=== PATIENT | female | born 1965 | race Caucasian/White ===

== ENCOUNTER → 2017-10-09 | Outpatient (CLI) | payer OTHER ==
[~2017-10-09] MED LIST: CARB200T6 PO; CASC450C PO; DIPH25TA82 PO; POLY17PO PO
--- NOTE | 2017-10-09 10:24 | Diagnostic Imaging Report ---
INDICATION: Bilateral diagnostic mammogram with tomography evaluation. CAD is utilized. The current study was also evaluated with a Computer Aided Detection (CAD) system. COMPARISON: 09/29/16. FINDINGS: The breasts are composed of heterogenously dense parenchyma which may decrease mammographic sensitivity. Circumscribed mass measuring 1.2 cm in the periareolar upper outer aspect of the right breast is stable from 2011 exam suggestive of benign etiology. The left breast demonstrate no definite change. IMPRESSION: Stable mammographic findings with no evidence of malignancy. BI-RADS 2. ACR BI-RADS Category 2: Benign findings. Result letter will be mailed to the patient. Note: At least 10% of breast cancer is not imaged by mammography. Dictated by: Dictated on workstation # [id number]
== END ==
LOC: RAD 08:41
PROVIDERS: ATTEND Nurse Practitioner Family
DX: Z87.898 Personal history of other specified conditions (principal)
CPT/HCPCS: 77066

== ENCOUNTER 2019-04-12 20:05 | Emergency (ER) | payer BC, OTHER ==
[~2019-04-12] VITALS: Ht 165.1 cm; Wt 54.0 kg
--- NOTE | 2019-04-12 20:42 | ED Headache ---
General Chief Complaint: Head/Cervical Problems Stated Complaint: HEADACHE,L EAR PAIN,FACE AND THROAT NUMBNESS Nursing Triage Note: PT AMB TO TRIAGE WITH COMPLAINT OF MIGRAINE. STATES STARTED TODAY AROUND 3 PM. STATES THE PAIN IS IN HER HEAD, FACE, AND NECK. STATES SHE HAS BEEN HAVING RINGING IN HER EARS. IS SCHEDULED TO SEE ENT FOR EARS. Nursing Sepsis Screen: No Definite Risk Source: patient Exam Limitations: no limitations History of Present Illness Date Seen by Provider: Apr 12, 2019 Time Seen by Provider: 20:40 Initial Comments 54-year-old female with a history of traumatic brain injury and seizure disorder to ER With reports of a global headache. This began at about 3 PM today. The pain is in her head face and front of her neck. She's been having ringing in her ears and is scheduled to see ear nose and throat on Thursday. No fevers or chills. Does report some blurred vision. Also has some numbness sensation in her face. The headache was 10 out of 10 at its maximum, down to 6 out of 10 now despite no intervention. She has taken nothing at home. No history of migraines. It presented from no pain at all to maximum intensity over the course of about 5 minutes. Timing/Duration: 1 week Severity/Quality: moderate Location: global Prior Headaches/Recent Trauma: no recent headache/trauma Modifying Factors: worse with exposure to light Associated Symptoms: denies symptoms; No confusion, No nausea/vomiting, No stiff neck Allergies and Home Medications Allergies Coded Allergies: Penicillins (Unverified Allergy, 06/19/11) clindamycin (Unverified Allergy, SWELLING, 06/19/11) Home Medications Carbamazepine 200 Mg Tablet, 3 TAB PO DAILY, (Reported) Carbamazepine 200 Mg Tablet, 4 TAB PO HS, (Reported) [place] 450 Mg Capsule, 450 MG PO HS, (Reported) Diphenhydramine Hcl 25 Mg Tablet, 1 EACH PO HS, (Reported) Patient Home Medication List Home Medication List Reviewed: Yes Review of Systems Review of Systems Constitutional: see HPI Eyes: No Symptoms Reported Ears, Nose, Mouth, Throat: no symptoms reported Respiratory: no symptoms reported Cardiovascular: no symptoms reported Genitourinary: no symptoms reported Musculoskeletal: no symptoms reported Skin: no symptoms reported Psychiatric/Neurological: Headache, Numbness (of the face) Past Ftqnosw-Etosyp-Dfvmye Hx Patient Social History Alcohol Use: Denies Use Recreational Drug Use: No Smoking Status: Never a Smoker Recent Foreign Travel: No Contact w/Someone Who Travel: No Recent Infectious Disease Expo: No Recent Hopitalizations: No Immunizations Up To Date Tetanus Booster (TDap): Unknown Seasonal Allergies Seasonal Allergies: No Past Medical History Surgeries: Yes Gallbladder, Tubal Ligation Respiratory: No Cardiac: No Neurological: Yes Seizure Disorder, Traumatic Brain Injury Reproductive Disorders: No Sexually Transmitted Disease: No Genitourinary: No Gastrointestinal: No Musculoskeletal: Yes (ARTHRITIS) Endocrine: No Integumentary: No Blood Disorders: No Physical Exam Vital Signs Vital Signs - First Documented 04/12/19 20:15 Temp 98.4 Pulse 81 Resp 17 B/P (MAP) 171/71 (104) Pulse Ox 99 O2 Delivery Room Air Capillary Refill : Less Than 3 Seconds Height, Weight, BMI Height: 5'5.00" Weight: 119lbs. oz. 53.633706ll; BMI Method:Stated General Appearance: WD/WN, no apparent distress HEENT: PERRL/EOMI, normal ENT inspection Neck: non-tender, full range of motion Respiratory: no respiratory distress, no accessory muscle use Extremities: normal range of motion, non-tender Psychiatric: alert, oriented x 3 Crainal Nerves: normal hearing, normal speech Skin: normal color Progress/Results/Core Measures Results/Orders Lab Results Laboratory Tests Test 04/12/19 20:45 Range/Units White Blood Count 4.8 4.3-11.0 10^3/uL Red Blood Count 4.32 L 4.35-5.85 10^6/uL Hemoglobin 12.8 11.5-16.0 G/DL Hematocrit 38 35-52 % Mean Corpuscular Volume 87 80-99 FL Mean Corpuscular Hemoglobin 30 25-34 PG Mean Corpuscular Hemoglobin Concent 34 32-36 G/DL Red Cell Distribution Width 11.7 10.0-14.5 % Platelet Count 254 130-400 10^3/uL Mean Platelet Volume 9.1 7.4-10.4 FL Neutrophils (%) (Auto) 61 42-75 % Lymphocytes (%) (Auto) 29 12-44 % Monocytes (%) (Auto) 9 0-12 % Eosinophils (%) (Auto) 2 0-10 % Basophils (%) (Auto) 0 0-10 % Neutrophils # (Auto) 2.9 1.8-7.8 X 10^3 Lymphocytes # (Auto) 1.4 1.0-4.0 X 10^3 Monocytes # (Auto) 0.4 0.0-1.0 X 10^3 Eosinophils # (Auto) 0.1 0.0-0.3 10^3/uL Basophils # (Auto) 0.0 0.0-0.1 10^3/uL Sodium Level 138 135-145 MMOL/L Potassium Level 3.9 3.6-5.0 MMOL/L Chloride Level 103 98-107 MMOL/L Carbon Dioxide Level 26 21-32 MMOL/L Anion Gap 9 5-14 MMOL/L Blood Urea Nitrogen 7 7-18 MG/DL Creatinine 0.72 0.60-1.30 MG/DL Estimat Glomerular Filtration Rate > 60 BUN/Creatinine Ratio 10 Glucose Level 100 70-105 MG/DL Calcium Level 9.8 8.5-10.1 MG/DL Corrected Calcium 8.5-10.1 MG/DL Total Bilirubin 0.3 0.1-1.0 MG/DL Aspartate Amino Transf (AST/SGOT) 17 5-34 U/L Alanine Aminotransferase (ALT/SGPT) 15 0-55 U/L Alkaline Phosphatase 66 40-136 U/L Total Protein 7.0 6.4-8.2 GM/DL Albumin 4.6 H 3.2-4.5 GM/DL My Orders Orders - MILAD RAMOS APRN Ct Head Wo (04/12/19 20:37) Cbc With Automated Diff (04/12/19 20:37) Comprehensive Metabolic Panel (04/12/19 20:37) Ed Iv/Invasive Line Start (04/12/19 20:37) Fentanyl Injection (Sublimaze Injection (04/12/19 20:45) Ketorolac Injection (Toradol Injection) (04/12/19 20:45) Csf Cell Count (04/12/19 21:22) Csf Glucose (04/12/19 21:22) Csf Total Protein (04/12/19 21:22) Csf Culture (04/12/19 21:22) Ns Iv 1000 Ml (Sodium Chloride 0.9%) (04/12/19 21:30) Fentanyl Injection (Sublimaze Injection (04/12/19 21:30) Lidocaine Pf 1% 5 Ml Injection (Xylocain (04/12/19 22:16) Medications Given in ED Current Medications Medications Dose Ordered Sig/Gael Route Start Time Stop Time Status Last Admin Dose Admin Fentanyl Citrate 25 mcg ONCE PRN IVP 04/12/19 20:45 04/12/19 20:45 25 MCG Fentanyl Citrate 50 mcg ONCE ONCE IVP 04/12/19 21:30 04/12/19 21:31 DC 04/12/19 22:02 50 MCG Ketorolac Tromethamine 15 mg ONCE ONCE IVP 04/12/19 20:45 04/12/19 20:46 DC 04/12/19 20:45 15 MG Vital Signs/I&O 04/12/19 20:15 Temp 98.4 Pulse 81 Resp 17 B/P (MAP) 171/71 (104) Pulse Ox 99 O2 Delivery Room Air Blood Pressure Mean: 104 Diagnostic Imaging Diagonstic Imaging: CT Comments NAME: JAIRO MOLINA MED REC#: [id number] PT STATUS: REG ER : 1965 PHYSICIAN: MILAD RAMOS EXECUTIVE DIRECTOR [employer]ETING ADMIT DATE: 04/12/19/ER Draft Date of Exam:04/12/19 CT HEAD WO PROCEDURE: CT head without contrast. TECHNIQUE: Multiple contiguous axial images were obtained through the brain without the use of intravenous contrast. Auto Exposure Controls were utilized during the CT exam to meet ALARA standards for radiation dose reduction. INDICATION: Migraine headache CT head without contrast There is some encephalomalacic change in the frontal lobe on left. There are no masses or hemorrhages. There are no extra-axial fluid collections. 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 No acute abnormality seen. Dictated on workstation # [id number] Dict: 04/12/192057 Trans: 04/12/192100 [facility] [id number] Interpreted by: SARAHI KENNEDY MD Electronically signed by: Departure Communication (Admissions) 2120-discussed with the patient the negative head CT. This rules out subarachnoid hemorrhage which her symptoms are most consistent with with 95% sensitivity. She can either go on home excepting 5% risk and return for worsening over to proceed with diagnostic lumbar puncture to evaluate for xanthochromia/red cells. She still rates her pain at 5 out of 10 and wishes to proceed with lumbar puncture. She does not have a history of headaches like this. 2248-VESNA CARMONA has done diagnostic lumbar puncture. This had an opening pressure of 20, crystal clear CSF walked to the lab by me. Impression Primary Impression: Headache Qualified Codes: R51 - Headache Disposition: 01 HOME, SELF-CARE Condition: Stable Departure-Patient Inst. Decision time for Depature: 22:49 Referrals: [facility] (PCP) Primary Care Physician VANGIE MARQUEZ (Family) Primary Care Physician Patient Instructions: Headache, Adult (DC) Add. Discharge Instructions: 1. Return to ER for any concerns 2. Follow-up with your doctor next week 3. All discharge instructions reviewed with patient and/or family. Voiced understanding. MILAD RAMOS EXECUTIVE DIRECTOR [employer]ING Apr 12, 2019 20:42
[2019-04-12] MEDS ORDERED: fentaNYL INJECTION 100 MCG/2 ML AMP IVP PRN (20:45)
[2019-04-12] MEDS ORDERED: KETOROLAC 30 MG/ML VIAL IVP ONE (20:45)
[2019-04-12 20:55] LABS: BASOPHILS % (AUTO) 0 % (0-10); EOSINOPHILS # (AUTO) 0.1 10^3/uL (0.0-0.3); EOSINOPHILS % (AUTO) 2 % (0-10); HEMATOCRIT 38 % (35-52); HEMOGLOBIN 12.8 G/DL (11.5-16.0); LYMPHOCYTES # (AUTO) 1.4 X 10^3 (1.0-4.0); LYMPHOCYTES % (AUTO) 29 % (12-44); MEAN CORPUSCULAR HEMOGLOBIN 30 PG (25-34); MEAN CORPUSCULAR HGB CONC 34 G/DL (32-36); MEAN CORPUSCULAR VOLUME 87 FL (80-99); MEAN PLATELET VOLUME 9.1 FL (7.4-10.4); MONOCYTES # (AUTO) 0.4 X 10^3 (0.0-1.0); MONOCYTES % (AUTO) 9 % (0-12); NEUTROPHILS # (AUTO) 2.9 X 10^3 (1.8-7.8); NEUTROPHILS % (AUTO) 61 % (42-75); PLATELET COUNT 254 10^3/uL (130-400); RED CELL DISTRIBUTION WIDTH 11.7 % (10.0-14.5); WHITE BLOOD COUNT 4.8 10^3/uL (4.3-11.0)
--- NOTE | 2019-04-12 21:01 | Diagnostic Imaging Report ---
PROCEDURE: CT head without contrast. TECHNIQUE: Multiple contiguous axial images were obtained through the brain without the use of intravenous contrast. Auto Exposure Controls were utilized during the CT exam to meet ALARA standards for radiation dose reduction. INDICATION: Migraine headache CT head without contrast There is some encephalomalacic change in the frontal lobe on left. There are no masses or hemorrhages. There are no extra-axial fluid collections. 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 No acute abnormality seen. Dictated by: Dictated on workstation # [id number]
[2019-04-12 21:13] LABS: ALANINE AMINOTRANSFERASE 15 U/L (0-55); ALBUMIN 4.6 GM/DL (3.2-4.5); ALKALINE PHOSPHATASE 66 U/L (40-136); BILIRUBIN,TOTAL 0.3 MG/DL (0.1-1.0); BUN/CREATININE RATIO 10; CALCIUM 9.8 MG/DL (8.5-10.1); CARBON DIOXIDE 26 MMOL/L (21-32); CHLORIDE 103 MMOL/L (98-107); CREATININE SERUM 0.72 MG/DL (0.60-1.30); GFR ESTIMATED > 60; GLUCOSE 100 MG/DL (70-105); POTASSIUM 3.9 MMOL/L (3.6-5.0); SODIUM 138 MMOL/L (135-145)
[2019-04-12] MEDS ORDERED: fentaNYL INJECTION 100 MCG/2 ML AMP IVP ONE (21:30)
[2019-04-12] MEDS ORDERED: NS IV 1000 ML 1,000 ML IV SCH (21:30)
[2019-04-12] MEDS ORDERED: LIDOCAINE PF 1% 5 ML (XYLOCAINE) AMP ONE (22:16)
[2019-04-12 22:26] VITALS: BP 145/65
--- NOTE | 2019-04-12 22:30 | NUR ---
MATHEW BARBOUR, TYPEWRITER OPERATOR AUTOMATIC HERE AT THIS TIME. CONSENT OBTAINED FOR LUMBAR PUNCTURE.
--- NOTE | 2019-04-12 22:41 | NUR ---
LUMBAR PUNCTURE TUBES COLLECTED: #1 @ 2233; #2 @ 2236; #3 @ 1563; #4 1552
[2019-04-12 23:05] LABS: CSF GLUCOSE 54 MG/DL (50-80); CSF TOTAL PROTEIN 29 MG/DL (15-40)
[2019-04-12 23:10] LABS: APPEARANCE,CSF CLEAR; COLOR,CSF COLORLESS; CSF TUBE NUMBER 4; RED BLOOD CELL,CSF 0 CELLS (0-0); WHITE BLOOD CELL,CSF 0 CELLS (0-5)
--- NOTE | 2019-04-14 07:11 | Anesthesia-Procedure Note ---
Procedures/Interventions Procedure Start/Stop/Diagnosis Date of Procedure: Apr 12, 2019 Start Time: 22:30 Referring Physician: SHANE Saavedra Preprocedural Diagnosis: headache Stop Time: 22:44 Lumbar Puncture Discussed Risk,Benefits: Yes Patient Consents: Yes Position: Lying, Right Sterile Technique: Yes Opening Pressure: 20 cm H20 Fluid Color: clear Spinal Needle Used: 22g Melgar 3 1/2 inch Procedure Notes late entry for 04/12/19 [id number]: Called to ED by SHANE Saavedra for LP. Patient 5'6 and 119#. Brief history obtained. Consent signed. Patient on her right side. Sterile prepped and draped. Localized at L4-L5 with lidocaine 2cc. 22 g Melgar 3.5 inch used to find SA space. CSF clear opening pressure 20 cm H20. 4 vials obtained fairly quickly. Needle removed and bandaid applied. Report to Jose C Gómez RN. Discussed post procedure instructions with patient, basically no restrictions, and discussed chance of PDPH. Patient and SO in room and confirms understanding. MATHEW BARBOUR CRNA Apr 14, 2019 07:11
== END 2019-04-12 23:27 | disposition home or self-care (01) ==
LOC: EDUNIT# 20:05 → ER 20:07
DX: R51 Headache (principal); Z86.69 Personal history of other diseases of the nervous system and sense organs; Z87.820 Personal history of traumatic brain injury; Z88.1 Allergy status to other antibiotic agents; Z88.0 Allergy status to penicillin; Z98.51 Tubal ligation status
CPT/HCPCS: 36415; 70450; 80053; 82945; 84157; 85025; 87070; 87205; 89051; 96361; 96374; 96375; 96376

== ENCOUNTER 2019-04-16 15:34 | Emergency (ER) | payer BC ==
[~2019-04-16] VITALS: Ht 165.1 cm; Wt 51.7 kg
[2019-04-16] MEDS ORDERED: ONDANSETRON 4 MG/2 ML (SDV) Z0FRAN IVP ONE (15:45)
[2019-04-16] MEDS ORDERED: LACTATED RINGERS 1,000 ML IV SCH (15:45)
[2019-04-16] MEDS ORDERED: fentaNYL INJECTION 100 MCG/2 ML AMP IVP ONE (15:45)
--- NOTE | 2019-04-16 15:50 | ED General ---
General Chief Complaint: Abdominal/GI Problems Stated Complaint: NAUSEA, VOMITING, HEADACHES, WEAK Nursing Triage Note: COMPLAINS OF N/V ET NOT ABLE TO KEEP ANYTHING DOWN SINCE THURSDAY. COMPLAINS WEAKNESS, HEADACHE, AND BILAT EYE PAIN. STATES SHE WAS SEEN HERE ON THURSDAY. ALSO HAS HAD X1 SEIZUERE SINCE THURSDAY. Nursing Sepsis Screen: No Definite Risk Source of Information: Patient Exam Limitations: No Limitations History of Present Illness Date Seen by Provider: Apr 16, 2019 Time Seen by Provider: 15:47 Initial Comments To ER with reports of a headache. This initially began on Thursday04/12/19. She was seen here in the emergency room. She described as a sudden onset headache with no history of headaches. CT was unremarkable within proceeded with diagnostic lumbar puncture to evaluate for subarachnoid hemorrhage which was negative. She was feeling better. Since then she's had nausea, headache recurs anytime she sits up or stands up. She is unable to eat because of the nausea. No fever. No diarrhea. Timing/Duration: 3-4 Days Severity: Moderate Associated Systoms: Headaches, Nausea/Vomiting Allergies and Home Medications Allergies Coded Allergies: Penicillins (Unverified Allergy, 06/19/11) clindamycin (Unverified Allergy, SWELLING, 06/19/11) Home Medications Carbamazepine 200 Mg Tablet, 3 TAB PO DAILY, (Reported) Carbamazepine 200 Mg Tablet, 4 TAB PO HS, (Reported) C[place] 450 Mg Capsule, 450 MG PO HS, (Reported) Diphenhydramine Hcl 25 Mg Tablet, 1 EACH PO HS, (Reported) Patient Home Medication List Home Medication List Reviewed: Yes Review of Systems Review of Systems Constitutional: see HPI; No chills, No fever EENTM: see HPI, other (photophobia) Cardiovascular: no symptoms reported Genitourinary: no symptoms reported Musculoskeletal: no symptoms reported Skin: no symptoms reported Psychiatric/Neurological: See HPI, Headache Hematologic/Lymphatic: No Symptoms Reported Past Ghyvzwo-Ensezz-Wwhzkk Hx Patient Social History Alcohol Use: Past History Recreational Drug Use: No Smoking Status: Former Smoker Recent Foreign Travel: No Contact w/Someone Who Travel: No Recent Infectious Disease Expo: No Recent Hopitalizations: No Immunizations Up To Date Tetanus Booster (TDap): Unknown Seasonal Allergies Seasonal Allergies: No Past Medical History Surgeries: Yes Gallbladder, Tubal Ligation Respiratory: No Cardiac: No Neurological: Yes Seizure Disorder, Traumatic Brain Injury Reproductive Disorders: No Sexually Transmitted Disease: No Genitourinary: No Gastrointestinal: No Musculoskeletal: Yes (ARTHRITIS) Endocrine: No Integumentary: No Blood Disorders: No Physical Exam Vital Signs Vital Signs - First Documented 04/16/19 15:38 Temp 98.2 Pulse 95 Resp 16 B/P (MAP) 160/77 (104) Pulse Ox 96 O2 Delivery Room Air Capillary Refill : Less Than 3 Seconds Height, Weight, BMI Height: 5'5.00" Weight: 114lbs. oz. 51.463437uj; BMI Method:Stated General Appearance: No Apparent Distress, WD/WN Eyes: Bilateral Eye Normal Inspection, Bilateral Eye PERRL, Bilateral Eye EOMI HEENT: PERRL/EOMI, TMs Normal Neck: Full Range of Motion, Normal Inspection Respiratory: No Accessory Muscle Use, No Respiratory Distress Gastrointestinal: Normal Bowel Sounds, Non Tender, Soft Extremity: Normal Capillary Refill, Normal Inspection Neurologic/Psychiatric: Alert, Oriented x3 Skin: Normal Color, Warm/Dry Progress/Results/Core Measures Suspected Sepsis Recent Fever Within 48 Hours: No Infection Criteria Present: None New/Unexplained Altered Menta: No Sepsis Screen: No Definite Risk SIRS Temperature:98.2 Pulse: 95 Respiratory Rate: 16 Laboratory Tests 04/16/19 15:48: White Blood Count 5.5 Blood Pressure 160 /77 Mean: 104 Laboratory Tests 04/16/19 15:48: Creatinine 0.75, Platelet Count 272, Total Bilirubin 0.4 Results/Orders Lab Results Laboratory Tests Test 04/16/19 15:48 04/16/19 15:55 Range/Units White Blood Count 5.5 4.3-11.0 10^3/uL Red Blood Count 4.61 4.35-5.85 10^6/uL Hemoglobin 13.7 11.5-16.0 G/DL Hematocrit 40 35-52 % Mean Corpuscular Volume 86 80-99 FL Mean Corpuscular Hemoglobin 30 25-34 PG Mean Corpuscular Hemoglobin Concent 35 32-36 G/DL Red Cell Distribution Width 12.0 10.0-14.5 % Platelet Count 272 130-400 10^3/uL Mean Platelet Volume 8.9 7.4-10.4 FL Neutrophils (%) (Auto) 70 42-75 % Lymphocytes (%) (Auto) 20 12-44 % Monocytes (%) (Auto) 9 0-12 % Eosinophils (%) (Auto) 0 0-10 % Basophils (%) (Auto) 0 0-10 % Neutrophils # (Auto) 3.9 1.8-7.8 X 10^3 Lymphocytes # (Auto) 1.1 1.0-4.0 X 10^3 Monocytes # (Auto) 0.5 0.0-1.0 X 10^3 Eosinophils # (Auto) 0.0 0.0-0.3 10^3/uL Basophils # (Auto) 0.0 0.0-0.1 10^3/uL Sodium Level 140 135-145 MMOL/L Potassium Level 3.8 3.6-5.0 MMOL/L Chloride Level 104 98-107 MMOL/L Carbon Dioxide Level 19 L 21-32 MMOL/L Anion Gap 17 H 5-14 MMOL/L Blood Urea Nitrogen 14 7-18 MG/DL Creatinine 0.75 0.60-1.30 MG/DL Estimat Glomerular Filtration Rate > 60 BUN/Creatinine Ratio 19 Glucose Level 87 70-105 MG/DL Calcium Level 10.4 H 8.5-10.1 MG/DL Corrected Calcium 8.5-10.1 MG/DL Total Bilirubin 0.4 0.1-1.0 MG/DL Aspartate Amino Transf (AST/SGOT) 15 5-34 U/L Alanine Aminotransferase (ALT/SGPT) 15 0-55 U/L Alkaline Phosphatase 64 40-136 U/L Total Protein 7.5 6.4-8.2 GM/DL Albumin 4.9 H 3.2-4.5 GM/DL Urine Color YELLOW Urine Clarity CLEAR Urine pH 5 5-9 Urine Specific [place] 1.030 H 1.016-1.022 Urine Protein 2+ H NEGATIVE Urine Glucose (UA) NEGATIVE NEGATIVE Urine Ketones 4+ H NEGATIVE Urine Nitrite NEGATIVE NEGATIVE Urine Bilirubin NEGATIVE NEGATIVE Urine Urobilinogen NORMAL NORMAL MG/DL Urine Leukocyte Esterase NEGATIVE NEGATIVE Urine RBC (Auto) NEGATIVE NEGATIVE Urine RBC NONE /HPF Urine WBC 0-2 /HPF Urine Squamous Epithelial Cells 2-5 /HPF Urine Crystals NONE /LPF Urine Bacteria TRACE /HPF Urine Casts NONE /LPF Urine Mucus NEGATIVE /LPF Urine Culture Indicated NO My Orders Orders - MILAD RAMOS SLUG PRESS OPERATOR Cbc With Automated Diff (04/16/19 15:43) Comprehensive Metabolic Panel (04/16/19 15:43) Ua Culture If Indicated (04/16/19 15:43) Ed Iv/Invasive Line Start (04/16/19 15:43) Ondansetron Injection (Zofran Injectio (04/16/19 15:45) Lactated Ringers (Lr 1000 Ml Iv Solution (04/16/19 15:45) Fentanyl Injection (Sublimaze Injection (04/16/19 15:45) Medications Given in ED Current Medications Medications Dose Ordered Sig/Gael Route Start Time Stop Time Status Last Admin Dose Admin Fentanyl Citrate 50 mcg ONCE ONCE IVP 04/16/19 15:45 04/16/19 15:46 DC 04/16/19 15:59 50 MCG Ondansetron HCl 8 mg ONCE ONCE IVP 04/16/19 15:45 04/16/19 15:46 DC 04/16/19 15:55 8 MG Vital Signs/I&O 04/16/19 15:38 Temp 98.2 Pulse 95 Resp 16 B/P (MAP) 160/77 (104) Pulse Ox 96 O2 Delivery Room Air Capillary Refill : Less Than 3 Seconds Blood Pressure Mean: 104 Departure Communication (Admissions) 1733-patient was treated with epidural blood patch by Roosevelt Swanson and myself. I oanh blood from her right arm using sterile technique 20 mL syringe and 22-gauge needle. 20 minutes after the procedure she is without headache nausea or vomiting and is drinking water without vomiting. On arrival the headache was 8 or 9 out of 10, currently 0-1 she says. Impression Primary Impression: Post-dural puncture headache Disposition: 01 HOME, SELF-CARE Condition: Improved Departure-Patient Inst. Decision time for Depature: 17:37 Referrals: [facility] (PCP) Primary Care Physician VANGIE MARQUEZ (Family) Primary Care Physician Patient Instructions: HEADACHE Add. Discharge Instructions: 1. Return to ER for any concerns 2. Follow-up with your doctor next week 3. MILAD RAMOS APRN Apr 16, 2019 15:50
[2019-04-16 15:55] LABS: BASOPHILS % (AUTO) 0 % (0-10); EOSINOPHILS % (AUTO) 0 % (0-10); HEMATOCRIT 40 % (35-52); HEMOGLOBIN 13.7 G/DL (11.5-16.0); LYMPHOCYTES # (AUTO) 1.1 X 10^3 (1.0-4.0); LYMPHOCYTES % (AUTO) 20 % (12-44); MEAN CORPUSCULAR HEMOGLOBIN 30 PG (25-34); MEAN CORPUSCULAR HGB CONC 35 G/DL (32-36); MEAN CORPUSCULAR VOLUME 86 FL (80-99); MEAN PLATELET VOLUME 8.9 FL (7.4-10.4); MONOCYTES # (AUTO) 0.5 X 10^3 (0.0-1.0); MONOCYTES % (AUTO) 9 % (0-12); NEUTROPHILS # (AUTO) 3.9 X 10^3 (1.8-7.8); NEUTROPHILS % (AUTO) 70 % (42-75); PLATELET COUNT 272 10^3/uL (130-400); WHITE BLOOD COUNT 5.5 10^3/uL (4.3-11.0)
[2019-04-16 16:03] LABS: BILIRUBIN,URINE NEGATIVE (NEGATIVE); CLARITY,URINE CLEAR; COLOR,URINE YELLOW; GLUCOSE, URINE (UA) NEGATIVE (NEGATIVE); KETONES,URINE 4+ (NEGATIVE); LEUKOCYTE ESTERASE ,URINE NEGATIVE (NEGATIVE); NITRITE,URINE NEGATIVE (NEGATIVE); PH,URINE 5 (5-9); PROTEIN,URINE 2+ (NEGATIVE); UROBILINOGEN,URINE NORMAL (NORMAL)
[2019-04-16 16:15] LABS: ALANINE AMINOTRANSFERASE 15 U/L (0-55); ALBUMIN 4.9 GM/DL (3.2-4.5); ALKALINE PHOSPHATASE 64 U/L (40-136); BILIRUBIN,TOTAL 0.4 MG/DL (0.1-1.0); BUN/CREATININE RATIO 19; CALCIUM 10.4 MG/DL (8.5-10.1); CARBON DIOXIDE 19 MMOL/L (21-32); CHLORIDE 104 MMOL/L (98-107); CREATININE SERUM 0.75 MG/DL (0.60-1.30); GFR ESTIMATED > 60; GLUCOSE 87 MG/DL (70-105); POTASSIUM 3.8 MMOL/L (3.6-5.0); SODIUM 140 MMOL/L (135-145); TOTAL PROTEIN 7.5 GM/DL (6.4-8.2)
[2019-04-16 16:18] LABS: BACTERIA,URINE TRACE /HPF; WBC,URINE 0-2 /HPF
[2019-04-16 18:00] VITALS: BP 150/73
--- OUTSIDE RECORDS SUMMARY | 2019-04-16 19:37 | XMS REPORT | Continuity of Care Document ---
Author Organization Unknown Address Unknown Allergies Active Description Code Type Severity Reaction Onset Reported/Identified Relationship to Patient Clinical Status Yes Penicillins Drug Allergy 09/04/2009 Yes Penicillins Drug Allergy N/A N/A 09/04/2009 Yes clindamycin [id number] Drug Allergy Unknown SWELLING 06/19/2011 Yes Penicillins [id number] Drug Allergy Unknown N/A 06/19/2011 Medications There is no data. Problems Date Dx Coded Attending Type Code Diagnosis Diagnosed By 06/02/2008 VANGIE MARQUEZ APRN 795.03 [place] SMEAR OF CERVIX WITH LOW GRADE SQUAMOUS INTRAEPITHELIAL LESION (LGSIL) 06/02/2008 795.03 [place] SMEAR OF CERVIX WITH LOW GRADE SQUAMOUS INTRAEPITHELIAL LESION (LGSIL) 06/02/2008 VANGIE MARQUEZ APRN 795.03 [place] SMEAR OF CERVIX WITH LOW GRADE SQUAMOUS INTRAEPITHELIAL LESION (LGSIL) 06/02/2008 YAHIR BRAUN DO 795.03 [place] SMEAR OF CERVIX WITH LOW GRADE SQUAMOUS INTRAEPITHELIAL LESION (LGSIL) 06/02/2008 YAHIR BRAUN DO 795.03 [place] SMEAR OF CERVIX WITH LOW GRADE SQUAMOUS INTRAEPITHELIAL LESION (LGSIL) 11/09/2008 VANGIE MARQUEZ APRN 296.90 MOOD DISORDER 11/09/2008 VANGIE MARQUEZ APRN 780.4 Dizziness And Vertigo 11/09/2008 296.90 MOOD DISORDER 11/09/2008 780.4 Dizziness And Vertigo 11/09/2008 VANGIE MARQUEZ APRN 296.90 MOOD DISORDER 11/09/2008 VANGIE MARQUEZ APRN 780.4 Dizziness And Vertigo 11/09/2008 YAHIR BRAUN DO 296.90 MOOD DISORDER 11/09/2008 YAHIR BRAUN DO 780.4 Dizziness And Vertigo 11/09/2008 YAHIR BRAUN DO 296.90 MOOD DISORDER 11/09/2008 YAHIR BRAUN DO 780.4 Dizziness And Vertigo 12/12/2008 VANGIE MAQRUEZ APRN R 382.00 Otitis Media Acute Without Spontaneous Rupture Eardrum 12/12/2008 MARQUEZVANGIE COFFMAN APRN R 780.6 FEVER 12/12/2008 JIMMY JACOBSONVANGIE Dillard R V58.69 MEDICATION HIGH RISK 12/12/2008 382.00 Otitis Media Acute Without Spontaneous Rupture Eardrum 12/12/2008 780.6 FEVER 12/12/2008 V58.69 MEDICATION HIGH RISK 12/12/2008 MARQUEZ VANGIE FREEDMAN R 382.00 Otitis Media Acute Without Spontaneous Rupture Eardrum 12/12/2008 MARQUEZVANGIE COFFMAN APRN R 780.6 FEVER 12/12/2008 JIMMY VANGIE FREEDMAN R V58.69 MEDICATION HIGH RISK 12/12/2008 BRAUN DO, YAHIR K 382.00 Otitis Media Acute Without Spontaneous Rupture Eardrum 12/12/2008 BRAUN DO, YAHIR K 780.6 FEVER 12/12/2008 BRAUN DO, YAHIR K V58.69 MEDICATION HIGH RISK 12/12/2008 BRAUN DO, YAHIR K 382.00 Otitis Media Acute Without Spontaneous Rupture Eardrum 12/12/2008 BRAUN DO, YAHIR K 780.6 FEVER 12/12/2008 BRAUN DO, YAHIR K V58.69 MEDICATION HIGH RISK 07/24/2009 VANGIE MARQUEZ APRN 345.10 GENERALIZED CONVULSIVE EPILEPSY WITHOUT INTRACTABLE EPILEPSY 07/24/2009 VANGIE MARQUEZ APRN 564.1 IRRITABLE BOWEL SYNDROME 07/24/2009 345.10 GENERALIZED CONVULSIVE EPILEPSY WITHOUT INTRACTABLE EPILEPSY 07/24/2009 564.1 IRRITABLE BOWEL SYNDROME 07/24/2009 VANGIE MARQUEZ APRN 345.10 GENERALIZED CONVULSIVE EPILEPSY WITHOUT INTRACTABLE EPILEPSY 07/24/2009 VANGIE MARQUEZ APRN 564.1 IRRITABLE BOWEL SYNDROME 07/24/2009 BRAUN DO YAHIR K 345.10 GENERALIZED CONVULSIVE EPILEPSY WITHOUT INTRACTABLE EPILEPSY 07/24/2009 BRAUN DO YAHIR K 564.1 IRRITABLE BOWEL SYNDROME 07/24/2009 BRAUN DO YAHIR K 345.10 GENERALIZED CONVULSIVE EPILEPSY WITHOUT INTRACTABLE EPILEPSY 07/24/2009 BRAUN DO YAHIR K 564.1 IRRITABLE BOWEL SYNDROME 08/10/2009 VANGIE MARQUEZ APRN V72.31 Pelvic Exam (internal) 08/10/2009 V72.31 Pelvic Exam (internal) 08/10/2009 VANGIE MARQUEZ APRN V72.31 Pelvic Exam (internal) 08/10/2009 YAHIR BRAUN DO V72.31 Pelvic Exam (internal) 08/10/2009 BRAUN DO, YAHIR K V72.31 Pelvic Exam (internal) 10/24/2009 VANGIE MARQUEZ APRN R 535.00 GASTRITIS ACUTE 10/24/2009 MARQUEZVANGIE COFFMAN APRN R 564.00 CONSTIPATION 10/24/2009 MARQUEZVANGIE COFFMAN APRN R 787.01 Nausea With Vomiting 10/24/2009 535.00 GASTRITIS ACUTE 10/24/2009 564.00 CONSTIPATION 10/24/2009 787.01 Nausea With Vomiting 10/24/2009 VANGIE MARQUEZ APRN R 535.00 GASTRITIS ACUTE 10/24/2009 MARQUEZVANGIE COFFMAN APRN R 564.00 CONSTIPATION 10/24/2009 MARQUEZVANGIE COFFMAN APRN R 787.01 Nausea With Vomiting 10/24/2009 [place] BRAUN DOA K 535.00 GASTRITIS ACUTE 10/24/2009 [place] BRAUN DOA K 564.00 CONSTIPATION 10/24/2009 [place] BRAUN DOA K 787.01 Nausea With Vomiting 10/24/2009 [place] BRAUN DOA K 535.00 GASTRITIS ACUTE 10/24/2009 KADE KELLY, YAHIR K 564.00 CONSTIPATION 10/24/2009 KADE KELLY, YAHIR K 787.01 Nausea With Vomiting 02/22/2010 VANGIE MARQUEZ APRN 780.39 SEIZURES OTHER 02/22/2010 780.39 SEIZURES OTHER 02/22/2010 VANGIE MARQUEZ APRN 780.39 SEIZURES OTHER 02/22/2010 [place] BRAUN DOA K 780.39 SEIZURES OTHER 02/22/2010 [place] BRAUN DOA K 780.39 SEIZURES OTHER 04/18/2010 VANGIE MARQUEZ APRN 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 04/18/2010 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 04/18/2010 VANGIE MARQUEZ APRN 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 04/18/2010 YAHIR BRAUN DO 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 04/18/2010 YAHIR BRAUN DO 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 05/06/2010 MARQUEZ INSPECTOR EYEGLASS FRAMES, VANGIE R 919.4 INSECT BITE NONVENOMOUS OF OTHER MULTIPLE AND UNSPECIFIED SITES WITHOUT INFECTION 05/06/2010 919.4 INSECT BITE NONVENOMOUS OF OTHER MULTIPLE AND UNSPECIFIED SITES WITHOUT INFECTION 05/06/2010 JIMMY JACOBSONVANGIE Dillard 919.4 INSECT BITE NONVENOMOUS OF OTHER MULTIPLE AND UNSPECIFIED SITES WITHOUT INFECTION 05/06/2010 KADE KELLY, YAHIR K 919.4 INSECT BITE NONVENOMOUS OF OTHER MULTIPLE AND UNSPECIFIED SITES WITHOUT INFECTION 05/06/2010 KADE DO, YAHIR K 919.4 INSECT BITE NONVENOMOUS OF OTHER MULTIPLE AND UNSPECIFIED SITES WITHOUT INFECTION 06/18/2010 JIMMY JACOBSONVANGIE Dillard 079.4 HUMAN PAPILLOMA VIRUS INFECTION 06/18/2010 079.4 HUMAN PAPILLOMA VIRUS INFECTION 06/18/2010 JIMMY JACOBSONVANGIE Dillard 079.4 HUMAN PAPILLOMA VIRUS INFECTION 06/18/2010 YAHIR BRAUN DO K 079.4 HUMAN PAPILLOMA VIRUS INFECTION 06/18/2010 [place] BRAUN DOA K 079.4 HUMAN PAPILLOMA VIRUS INFECTION 05/19/2011 VANGIE MARQUEZ APRN 388.70 EAR ACHE 05/19/2011 MARQUEZ VANGIE FREEDMAN 611.72 BREAST LUMP OR MASS 05/19/2011 388.70 EAR ACHE 05/19/2011 611.72 BREAST LUMP OR MASS 05/19/2011 MARQUEZVANGIE Rucker APRN 388.70 EAR ACHE 05/19/2011 VANGIE MARQUEZ APRN 611.72 BREAST LUMP OR MASS 05/19/2011 YAHIR BRAUN DO K 388.70 EAR ACHE 05/19/2011 [place] BRAUN DOA K 611.72 BREAST LUMP OR MASS 05/19/2011 KADE KELLY, YAHIR K 388.70 EAR ACHE 05/19/2011 BRAUN , YAHIR K 611.72 BREAST LUMP OR MASS 06/09/2011 VANGIE MARQUEZ APRN 610.0 SOLITARY CYST OF BREAST 06/09/2011 VANGIE MARQUEZ APRN 611.71 BREAST PAIN 06/09/2011 MARQUEZ VANGIE FREEDMAN 793.80 UNSPECIFIED (ABNORMAL) MAMMOGRAM 06/09/2011 610.0 SOLITARY CYST OF BREAST 06/09/2011 611.71 BREAST PAIN 06/09/2011 793.80 UNSPECIFIED (ABNORMAL) MAMMOGRAM 06/09/2011 MARQUEZVANGIE COFFMAN APRN 610.0 SOLITARY CYST OF BREAST 06/09/2011 VANGIE MARQUEZ APRN 611.71 BREAST PAIN 06/09/2011 MARQUEZVANGIE COFFMAN APRN 793.80 UNSPECIFIED (ABNORMAL) MAMMOGRAM 06/09/2011 BRAUN DO, YAHIR K 610.0 SOLITARY CYST OF BREAST 06/09/2011 BRAUN DO, YAHIR K 611.71 BREAST PAIN 06/09/2011 BRAUN DO, YAHIR K 793.80 UNSPECIFIED (ABNORMAL) MAMMOGRAM 06/09/2011 BRAUN DO, YAHIR K 610.0 SOLITARY CYST OF BREAST 06/09/2011 BRAUN DO, YAHIR K 611.71 BREAST PAIN 06/09/2011 BRAUN DO, YAHIR K 793.80 UNSPECIFIED (ABNORMAL) MAMMOGRAM 07/07/2011 VANGIE MARQUEZ APRN 217 BENIGN NEOPLASM OF BREAST 07/07/2011 VANGIE MARQUEZ APRN 610.1 DIFFUSE CYSTIC MASTOPATHY 07/07/2011 VANGIE MARQUEZ APRN V45.89 OTHER POSTSURGICAL STATUS 07/07/2011 217 BENIGN NEOPLASM OF BREAST 07/07/2011 610.1 DIFFUSE CYSTIC MASTOPATHY 07/07/2011 V45.89 OTHER POSTSURGICAL STATUS 07/07/2011 VANGIE MARQUEZ APRN 217 BENIGN NEOPLASM OF BREAST 07/07/2011 VANGIE MARQUEZ APRN 610.1 DIFFUSE CYSTIC MASTOPATHY 07/07/2011 VANGIE MARQUEZ APRN V45.89 OTHER POSTSURGICAL STATUS 07/07/2011 [place] BRAUN DOA K 217 BENIGN NEOPLASM OF BREAST 07/07/2011 [place] BRAUN DOA K 610.1 DIFFUSE CYSTIC MASTOPATHY 07/07/2011 KADE KELLY YAHIR K V45.89 OTHER POSTSURGICAL STATUS 07/07/2011 BRAUN DO YAHIR K 217 BENIGN NEOPLASM OF BREAST 07/07/2011 BRAUN DO YAHIR K 610.1 DIFFUSE CYSTIC MASTOPATHY 07/07/2011 BRAUN DO YAHIR K V45.89 OTHER POSTSURGICAL STATUS 10/09/2011 VANGIE MARQUEZ APRN 795.04 ABNORMAL PAP - HGSIL 10/09/2011 VANGIE MARQUEZ APRN V72.31 GIN OPERATOR EXAM, ROUTINE 10/09/2011 795.04 ABNORMAL PAP - HGSIL 10/09/2011 V72.31 GIN OPERATOR EXAM, ROUTINE 10/09/2011 VANGIE MARQUEZ APRN 795.04 ABNORMAL PAP - HGSIL 10/09/2011 VANGIE MARQUEZ APRN V72.31 GIN OPERATOR EXAM, ROUTINE 10/09/2011 YAHIR BRAUN DO 795.04 ABNORMAL PAP - HGSIL 10/09/2011 YAHIR BRAUN DO V72.31 GIN OPERATOR EXAM, ROUTINE 10/09/2011 YAHIR BRAUN DO 795.04 ABNORMAL PAP - HGSIL 10/09/2011 YAHIR BRAUN DO V72.31 GIN OPERATOR EXAM, ROUTINE 10/27/2011 VANGIE MARQUEZ APRN 478.19 OTHER DISEASES OF NASAL CAVITY AND SINUSES 10/27/2011 VANGIE MARQUEZ APRN 784.42 DYSPHONIA 10/27/2011 VANGIE MARQUEZ APRN 786.2 COUGH 10/27/2011 478.19 OTHER DISEASES OF NASAL CAVITY AND SINUSES 10/27/2011 784.42 DYSPHONIA 10/27/2011 786.2 COUGH 10/27/2011 VANGIE MARQUEZ APRN 478.19 OTHER DISEASES OF NASAL CAVITY AND SINUSES 10/27/2011 VANGIE MARQUEZ APRN 784.42 DYSPHONIA 10/27/2011 VANGIE MARQUEZ APRN 786.2 COUGH 10/27/2011 YAHIR BRAUN DO 478.19 OTHER DISEASES OF NASAL CAVITY AND SINUSES 10/27/2011 YAHIR BRAUN DO 784.42 DYSPHONIA 10/27/2011 YAHIR BRAUN DO 786.2 COUGH 10/27/2011 YAHIR BRAUN DO 478.19 OTHER DISEASES OF NASAL CAVITY AND SINUSES 10/27/2011 [place] BRAUN DOA K 784.42 DYSPHONIA 10/27/2011 YAHIR BRAUN DO K 786.2 COUGH 05/26/2012 VANGIE MARQUEZ APRN 477.9 RHINITIS 05/26/2012 477.9 RHINITIS 05/26/2012 VANGIE MARQUEZ APRN 477.9 RHINITIS 05/26/2012 YAHIR BRAUN DO 477.9 RHINITIS 05/26/2012 YAHIR BRAUN DO 477.9 RHINITIS 04/08/2013 780.79 OTHER MALAISE AND FATIGUE 04/08/2013 783.1 ABNORMAL WEIGHT GAIN 04/08/2013 VANGIE MARQUEZ APRN R 780.79 OTHER MALAISE AND FATIGUE 04/08/2013 MARQUEZVANGIE COFFMAN APRN R 783.1 ABNORMAL WEIGHT GAIN 04/08/2013 [place] BRAUN DOA K 780.79 OTHER MALAISE AND FATIGUE 04/08/2013 KADE DO, YAHIR K 783.1 ABNORMAL WEIGHT GAIN 04/08/2013 KADE KELLY YAHIR K 780.79 OTHER MALAISE AND FATIGUE 04/08/2013 KADE KELLY, YAHIR K 783.1 ABNORMAL WEIGHT GAIN 04/15/2013 789.05 ABDOMINAL PAIN PERIUMBILIC 04/15/2013 JIMMY JACOBSONVANGIE Dillard R 789.05 ABDOMINAL PAIN PERIUMBILIC 04/15/2013 [place] BRAUN DOA K 789.05 ABDOMINAL PAIN PERIUMBILIC 04/15/2013 [place] BRAUN DOA K 789.05 ABDOMINAL PAIN PERIUMBILIC 09/29/2016 Ot 610.0 SOLITARY CYST OF BREAST 09/29/2016 Ot 793.89 OTH (ABN) FINDINGS ON RADIOLOGICAL EXAMI 09/29/2016 Ot 217 BENIGN NEOPLASM BREAST 09/29/2016 Ot 611.72 LUMP OR MASS IN BREAST 09/29/2016 Ot V72.63 PRE-PROCEDURAL LABORATORY EXAMINATION 09/29/2016 Ot V74.8 SCREEN-BACTERIAL DIS NEC 09/29/2016 Ot 610.0 SOLITARY CYST OF BREAST 09/29/2016 Ot V67.09 SURGERY FOLLOW- UP, OTHER SURGERY 09/29/2016 Ot 793.80 UNSPEC ABNORMAL MAMMOGRAM 09/29/2016 Ot V67.9 FOLLOW-UP EXAM NOS 09/29/2016 Ot 611.72 LUMP OR MASS IN BREAST 09/29/2016 VANGIE MARQUEZ CFMAJOR Ot 789.00 ABDOMINAL PAIN, UNSPECIFIED SITE 09/29/2016 VANGIE MARQUEZ Ot 611.72 LUMP OR MASS IN BREAST 09/30/2016 ADALBERTO VELEZ Ot N63 UNSPECIFIED LUMP IN BREAST 10/12/2017 SIOMARA GARCIA SENIOR LABORATORY TECHNICIAN Ot Z87.898 PERSONAL HISTORY OF OTHER SPECIFIED COND 04/14/2019 MILAD RAMOS INSPECTOR EYEGLASS FRAMES Ot R51 HEADACHE 04/14/2019 MILAD RAMOS INSPECTOR EYEGLASS FRAMES Ot Z86.69 PERSONAL HISTORY OF DIS OF THE NERVOUS S 04/14/2019 MILAD RAMOS INSPECTOR EYEGLASS FRAMES Ot Z87.820 PERSONAL HISTORY OF TRAUMATIC BRAIN INJU 04/14/2019 MILAD RAMOS APRN Ot Z88.0 ALLERGY STATUS TO PENICILLIN 04/14/2019 MILAD RAMOS INSPECTOR EYEGLASS FRAMES Ot Z88.1 ALLERGY STATUS TO OTHER ANTIBIOTIC AGENT 04/14/2019 MILAD RAMOS APRN Ot Z98.51 TUBAL LIGATION STATUS Procedures Code Description [place] [address] US BREAST(S) ULTRASOUND, BOTH 10/08/2012 67260 US GUIDE FOR BIOPSY 10/08/2012 18800 MAMMOGRAM DX, KAMILLA 10/08/2012 59702 H PYLORI (IN-HOUSE) 04/08/2013 39646 ROUTINE VENIPUNCTURE 04/11/2013 34900 CBC 04/11/2013 74474 IRON SERUM 04/11/2013 38437 IRON BNDNG CAP 04/11/2013 01833 TSH 04/11/2013 79030 FERRITIN 04/11/2013 59258 CARBAMAZAPINE (TEGRETOL) TOTAL 04/11/2013 22265 CARBAMAZAPINE (TEGRETOL) TOTAL 04/15/2013 IRGROUP IRON GROUP (Iron,TIBC, Ferritin) 04/15/2013 18915 KUB 04/18/2013 47654 ROUTINE VENIPUNCTURE 02/06/2015 35561 CBC 02/06/2015 2336250 GFR CALC (RESULT ONLY) 02/06/2015 09807 CMP 02/06/2015 77053 LIPID PANEL 02/06/2015 12383 CARBAMAZAPINE (TEGRETOL) TOTAL 02/06/2015 33381 TSH 02/06/2015 Results Test Result Range Complete blood count (CBC) with automated white blood cell (WBC) differential - 04/12/19 20:45 Blood leukocytes automated count (number/volume) 4.8 10*3/uL 4.3-11.0 Blood erythrocytes automated count (number/volume) 4.32 10*6/uL 4.35-5.85 Venous blood hemoglobin measurement (mass/volume) 12.8 g/dL 11.5-16.0 Blood hematocrit (volume fraction) 38 % 35-52 Automated erythrocyte mean corpuscular volume 87 [foz_us] 80-99 Automated erythrocyte mean corpuscular hemoglobin (mass per erythrocyte) 30 pg 25-34 Automated erythrocyte mean corpuscular hemoglobin concentration measurement (mass/volume) 34 g/dL 32-36 Automated erythrocyte distribution width ratio 11.7 % 10.0- 14.5 Automated blood platelet count (count/volume) 254 10*3/uL 130-400 Automated blood platelet mean volume measurement 9.1 [foz_us] 7.4-10.4 Automated blood neutrophils/100 leukocytes 61 % 42-75 Automated blood lymphocytes/100 leukocytes 29 % 12-44 Blood monocytes/100 leukocytes 9 % 0-12 Automated blood eosinophils/100 leukocytes 2 % 0-10 Automated blood basophils/100 leukocytes 0 % 0-10 Blood neutrophils automated count (number/volume) 2.9 10*3 1.8-7.8 Blood lymphocytes automated count (number/volume) 1.4 10*3 1.0-4.0 Blood monocytes automated count (number/volume) 0.4 10*3 0.0- 1.0 Automated eosinophil count 0.1 10*3/uL 0.0-0.3 Automated blood basophil count (count/volume) 0.0 10*3/uL 0.0-0.1 Comprehensive metabolic panel - 04/12/19 20:45 Serum or plasma sodium measurement (moles/volume) 138 mmol/L 135-145 Serum or plasma potassium measurement (moles/volume) 3.9 mmol/L 3.6-5.0 Serum or plasma chloride measurement (moles/volume) 103 mmol/L 98-107 Carbon dioxide 26 mmol/L 21-32 Serum or plasma anion gap determination (moles/volume) 9 mmol/L 5-14 Serum or plasma urea nitrogen measurement (mass/volume) 7 mg/dL 7-18 Serum or plasma creatinine measurement (mass/volume) 0.72 mg/dL 0.60-1.30 Serum or plasma urea nitrogen/creatinine mass ratio 10 NRG Serum or plasma creatinine measurement with calculation of estimated glomerular filtration rate > NRG Serum or plasma glucose measurement (mass/volume) 100 mg/dL 70-105 Serum or plasma calcium measurement (mass/volume) 9.8 mg/dL 8.5-10.1 Serum or plasma total bilirubin measurement (mass/volume) 0.3 mg/dL 0.1-1.0 Serum or plasma alkaline phosphatase measurement (enzymatic activity/volume) 66 U/L 40-136 Serum or plasma aspartate aminotransferase measurement (enzymatic activity/volume) 17 U/L 5-34 Serum or plasma alanine aminotransferase measurement (enzymatic activity/volume) 15 U/L 0-55 Serum or plasma protein measurement (mass/volume) 7.0 g/dL 6.4-8.2 Serum or plasma albumin measurement (mass/volume) 4.6 g/dL 3.2-4.5 Cerebrospinal fluid cell count - 04/12/19 22:36 Cerebrospinal fluid appearance description CLEAR NRG Cerebrospinal fluid color identification COLORLESS NRG Cerebrospinal fluid leukocytes count (number/volume) 0 % 0- 5 Cerebrospinal fluid erythrocytes count (number/volume) 0 % 0-0 Manual cerebrospinal fluid lymphocytes/100 leukocytes TNP NRG Manual cerebrospinal fluid mononuclear cells/100 leukocytes TNP NRG Manual cerebrospinal fluid polymorphonuclear cells/100 leukocytes TNP NRG Cerebrospinal fluid cell count on specimen from last tube collected 4 NRG Cerebrospinal fluid glucose measurement (mass/volume) - 04/12/19 22:36 Cerebrospinal fluid glucose measurement (mass/volume) 54 mg/dL 50-80 Cerebrospinal fluid protein measurement (mass/volume) - 04/12/19 22:36 Cerebrospinal fluid protein measurement (mass/volume) 29 mg/dL 15-40 Gram stain microscopy - 04/12/19 22:36 Gram stain microscopy GRAM STAIN PERFORMED AT [facility]. NRG Bacterial cerebrospinal fluid culture - 04/12/19 22:36 Bacterial cerebrospinal fluid culture NG NRG Encounters ACCT No. Visit Date/Time Discharge Status Pt. Type Provider Facility Loc./Unit Complaint [id number] 02/06/2015 08:08:00 02/06/2015 23:59:59 [facility] Outpatient YAHIR BRAUN DO [id number] 07/04/2014 10:36:00 07/04/2014 23:59:59 [facility] Outpatient YAHIR BRAUN DO [id number] 11/30/2013 08:48:00 11/30/2013 23:59:59 [facility] Outpatient VANGIE MARQUEZ APRN [id number] 10/08/2012 10:04:00 10/08/2012 23:59:59 [facility] Outpatient VANGIE MARQUEZ APRN [id number] 04/15/2013 10:36:00 Document Registration [id number] 04/12/2019 20:07:00 04/12/2019 23:27:00 DIS Outpatient MILAD RAMOS APRN [facility] ER HEADACHE,L EAR PAIN,FACE AND THROAT NUMBNESS [id number] 10/09/2017 08:41:00 10/09/2017 23:59:59 CLS Outpatient SIOMARA GARCIA [facility] RAD Z87.898 ABNORMAL MAMMOGRAM [id number] 09/29/2016 13:19:00 09/29/2016 23:59:59 CLS Outpatient ADALBERTO VELEZ [facility] RAD SCREENING, FIBROUS BREAST TISSUE [id number] 05/23/2013 11:54:00 05/23/2013 23:59:59 [facility] Outpatient VANGIE MARQUEZ [facility] RAD FOLLOW-UP [id number] 04/15/2013 12:21:00 04/15/2013 23:59:59 CLS Outpatient VANGIE MARQUEZ [facility] RAD ABD PAIN [id number] 11/18/2012 12:13:00 Document Registration [id number] 10/28/2012 12:38:00 Document Registration [id number] 03/29/2012 13:50:00 Document Registration [id number] 06/26/2011 05:40:00 Document Registration [id number] 06/19/2011 13:42:00 Document Registration [id number] 05/27/2011 13:14:00 Document Registration
== END 2019-04-16 18:02 | disposition home or self-care (01) ==
LOC: EDUNIT# 15:34 → ER 15:35
DX: G97.1 Other reaction to spinal and lumbar puncture (principal); G40.909 Epilepsy, unspecified, not intractable, without status epilepticus; Z98.51 Tubal ligation status; Z87.891 Personal history of nicotine dependence; Z88.0 Allergy status to penicillin; Z88.1 Allergy status to other antibiotic agents; Z98.890 Other specified postprocedural states
CPT/HCPCS: 36415; 80053; 81000; 85025

== ENCOUNTER 2019-05-19 05:40 | Outpatient (CLI) | payer BC ==
[~2019-05-19] VITALS: Ht 165.1 cm; Wt 51.7 kg
[2019-05-19] MEDS ORDERED: POLY119P4 PO (15:36)
[2019-05-19] MEDS ORDERED: ATOR20TA66 PO (15:36)
[2019-05-19] MEDS ORDERED: MULT-141 PO (15:36)
[2019-05-19] MEDS ORDERED: DIPH25TA31 PO (15:36)
[2019-05-19] MEDS ORDERED: BLAC540C4 PO (15:36)
[2019-05-19] MEDS ORDERED: CARB200T6 PO ×2 (15:36)
[2019-05-19] MEDS ORDERED: CALC1CAP21 PO (15:36)
[2019-05-19] MEDS ORDERED: OMG1KC PO (15:36)
== END 2019-05-19 15:39 | disposition home or self-care (01) ==
LOC: PREOP 05:40
PROVIDERS: ATTEND Internal Medicine
DX: Z01.818 Encounter for other preprocedural examination (principal)

== ENCOUNTER 2019-05-27 06:54 | Day surgery (SDC) | payer BC ==
--- NOTE | 2019-05-12 19:33 | HISTORY AND PHYSICAL ---
DATE OF SERVICE: COLONOSCOPY HISTORY AND PHYSICAL HISTORY OF PRESENT ILLNESS: The patient is a 54-year-old white female referred by Dr. Arizmendi for screening colonoscopy. The patient, however, does report that she has been having some bilateral lower quadrant abdominal pain as well as constipation. The pain has been present for the past several months and constipation for several years. She reports a 30+ pound weight loss over the past year, has not necessarily been trying. She comes with a significant other and she reports memory difficulties since traumatic brain injury a number of years ago. She does report relief of abdominal symptoms with the passage of stool. She has not been aware of any bright red blood per rectum or melena and denies any medication change. PAST MEDICAL HISTORY: Significant for hyperlipidemia for which she has been on atorvastatin 20 mg daily with no known history of vascular disease. She has a history of traumatic brain injury and an apparent seizure disorder for which she takes Tegretol related to her brain injury 600 mg in the morning and 800 mg at bedtime. OTHER MEDICATIONS: Calcium with D 600 mg/400 units daily. She takes ClearLax daily for her constipation and occasional Cascara. She is on fish oil supplementation and occasionally takes Benadryl, is on Black Cohosh 540 mg daily and multiple vitamins daily. PAST SURGICAL HISTORY: She has had cholecystectomy laparoscopically in the past, tubal ligation and breast biopsy for what turned out to be benign pathology. REVIEW OF SYSTEMS: CONSTITUTIONAL: She has had 30+ pound weight loss, but denies night sweats, chills or fever. GASTROINTESTINAL: As per HPI. CARDIOVASCULAR: She denies any history of cardiovascular procedures. Has had no chest pain, palpitations, syncope or presyncope. PULMONARY: She denies cough, dyspnea on exertion or at rest. Denies wheezing. PHYSICAL EXAMINATION: GENERAL: Reveals normal weight white female, appears to be in no acute distress. VITAL SIGNS: Blood pressure 124/70, respiratory rate 16 and nonlabored, heart rate 72 and regular. HEENT: Unremarkable. She has a Mallampati class 3 configuration. NECK: Revealed no JVD, adenopathy or bruits. CARDIOVASCULAR: Revealed a regular rate and rhythm without murmur, S3 or S4. ABDOMEN: Soft, supple without mass or organomegaly. She has mild bilateral lower quadrant discomfort to palpation without rebound or guarding. No bruits are noted. EXTREMITIES: Reveal no cyanosis, clubbing or edema. ASSESSMENT AND PLAN: The patient was set up for screening colonoscopy on 05/27/2019 considering abdominal pain with constipation. She is likely to have more than the average amount of sensitivity, the colonic manipulation and air insufflation, so we will plan to perform with the aid of anesthesiology and Diprivan. Prep instructions with Dias-prep kit were given and questions were answered. I thank you for the referral of this pleasant lady. Job ID: [id number] DocumentID: [id number] Dictated Date: 05/04/2019 18:19:15 Ophthalmic Technician Apprentice Date: 05/04/2019 18:47:40 Dictated By: CARLA PACHECO MD
[~2019-05-27] VITALS: Ht 165.1 cm; Wt 51.7 kg
[~2019-05-27 06:54] MED LIST changes: +ATOR20TA66 PO; +BLAC540C4 PO; +CALC1CAP21 PO; +DIPH25TA31 PO; +MULT-141 PO; +OMG1KC PO; +POLY119P4 PO
[2019-05-27] MEDS ORDERED: LACTATED RINGERS 1,000 ML IV ONE (06:59)
[2019-05-27] MEDS ORDERED: D5 LR IV SOLUTION 0 ML IV ONE (06:59)
--- OUTSIDE RECORDS SUMMARY | 2019-05-27 07:03 | XMS REPORT | Continuity of Care Document ---
Author Organization Unknown Address Unknown Phone Unavailable Allergies Active Description Code Type Severity Reaction Onset Reported/Identified Relationship to Patient Clinical Status Yes Penicillins Drug Allergy 09/04/2009 Yes Penicillins Drug Allergy N/A N/A 09/04/2009 Yes clindamycin [id number] Drug Allergy Unknown SWELLING 06/19/2011 Yes Penicillins [id number] Drug Allergy Unknown N/A 06/19/2011 Medications There is no data. Problems Date Dx Coded Attending Type Code Diagnosis Diagnosed By 06/02/2008 VANGIE MARQUEZ APRN 795.03 P[place] SMEAR OF CERVIX WITH LOW GRADE SQUAMOUS INTRAEPITHELIAL LESION (LGSIL) 06/02/2008 795.03 [place] SMEAR OF CERVIX WITH LOW GRADE SQUAMOUS INTRAEPITHELIAL LESION (LGSIL) 06/02/2008 VANIGE MARQUEZ APRN 795.03 [place] SMEAR OF CERVIX [...] BRAUN DO 780.4 Dizziness And Vertigo 12/12/2008 MARQUEZ VANGIE FREEDMAN R 382.00 Otitis Media Acute Without Spontaneous Rupture Eardrum 12/12/2008 MARQUEZ VANGIE FREEDMAN R 780.6 FEVER 12/12/2008 JIMMY JACOBSONVANGIE Dillard R V58.69 MEDICATION HIGH RISK 12/12/2008 382.00 Otitis Media Acute Without Spontaneous Rupture Eardrum 12/12/2008 780.6 FEVER 12/12/2008 V58.69 MEDICATION HIGH RISK 12/12/2008 JIMMY VANGIE FREEDMAN R 382.00 Otitis Media Acute Without Spontaneous Rupture Eardrum 12/12/2008 MARQUEZ VANGIE FREEDMAN R 780.6 FEVER 12/12/2008 JIMMY JACOBSONVANGIE Dillard R V58.69 MEDICATION HIGH RISK 12/12/2008 BRAUN [...] BRAUN DO V72.31 Pelvic Exam (internal) 08/10/2009 KADE KELLY, YAHIR K V72.31 Pelvic Exam (internal) 10/24/2009 VANGIE MARQUEZ APRN 535.00 GASTRITIS ACUTE 10/24/2009 MARQUEZVANGIE COFFMAN APRN R 564.00 CONSTIPATION 10/24/2009 MARQUEZ VANGIE FREEDMAN R 787.01 Nausea With Vomiting 10/24/2009 535.00 GASTRITIS ACUTE 10/24/2009 564.00 CONSTIPATION 10/24/2009 787.01 Nausea With Vomiting 10/24/2009 MARQUEZVANGIE COFFMAN APRN R 535.00 GASTRITIS ACUTE 10/24/2009 MARQUEZ VANGIE FREEDMAN R 564.00 CONSTIPATION 10/24/2009 MARQUEZVANGIE COFFMAN APRN R 787.01 Nausea With Vomiting 10/24/2009 YAHIR BRAUN DO K 535.00 GASTRITIS ACUTE 10/24/2009 [place] BRAUN DOA K 564.00 CONSTIPATION 10/24/2009 [place] BRAUN DOA K 787.01 Nausea With Vomiting 10/24/2009 [place] BRAUN DOA K 535.00 GASTRITIS ACUTE 10/24/2009 KADE KELLY, YAHIR K 564.00 CONSTIPATION 10/24/2009 [place] BRAUN DOA K 787.01 Nausea With Vomiting 02/22/2010 VANGIE MARQUEZ APRN 780.39 SEIZURES OTHER 02/22/2010 780.39 SEIZURES OTHER 02/22/2010 VANGIE MARQUEZ APRN 780.39 SEIZURES OTHER 02/22/2010 [place] BRAUN DOA K 780.39 SEIZURES OTHER 02/22/2010 KADE KELLY, YAHIR K 780.39 SEIZURES OTHER 04/18/2010 VANGIE MARQUEZ APRN 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 04/18/2010 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 04/18/2010 VANGIE MARQUEZ APRN 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 04/18/2010 YAHIR BRAUN DO 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 04/18/2010 YAHIR BRAUN DO 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 05/06/2010 VANGIE MARQUEZ APRN 919.4 INSECT BITE NONVENOMOUS OF OTHER MULTIPLE AND UNSPECIFIED SITES WITHOUT INFECTION 05/06/2010 919.4 INSECT BITE NONVENOMOUS OF OTHER MULTIPLE AND UNSPECIFIED SITES WITHOUT INFECTION 05/06/2010 JIMMY JACOBSONVANGIE Dillard 919.4 INSECT BITE NONVENOMOUS OF OTHER MULTIPLE AND UNSPECIFIED SITES WITHOUT INFECTION 05/06/2010 YAHIR BRAUN DO K 919.4 INSECT BITE NONVENOMOUS OF OTHER MULTIPLE AND UNSPECIFIED SITES WITHOUT INFECTION 05/06/2010 YAHIR BRAUN DO K 919.4 INSECT BITE NONVENOMOUS OF OTHER MULTIPLE AND UNSPECIFIED SITES WITHOUT INFECTION 06/18/2010 JIMMY JACOBSONVANGIE Dillard 079.4 HUMAN PAPILLOMA VIRUS INFECTION 06/18/2010 079.4 HUMAN PAPILLOMA VIRUS INFECTION 06/18/2010 JIMMY JACOBSONVANGIE Dillard 079.4 HUMAN PAPILLOMA VIRUS INFECTION 06/18/2010 YAHIR BRAUN DO 079.4 HUMAN PAPILLOMA VIRUS INFECTION 06/18/2010 YAHIR BRAUN DO K 079.4 HUMAN PAPILLOMA VIRUS INFECTION 05/19/2011 MARQUEZ VANGIE FREEDMAN 388.70 EAR ACHE 05/19/2011 MARQUEZAUGUSTUS JACOBSONVANGIE Dillard 611.72 BREAST LUMP OR MASS 05/19/2011 388.70 EAR ACHE 05/19/2011 611.72 BREAST LUMP OR MASS 05/19/2011 MARQUEZAUGUSTUS JACOBSONVANGIE Dillard 388.70 EAR ACHE 05/19/2011 JIMMY JACOBSONVANGIE Dilladr 611.72 BREAST LUMP OR MASS 05/19/2011 YAHIR BRAUN DO K 388.70 EAR ACHE 05/19/2011 YAHRI BRAUN DO K 611.72 BREAST LUMP OR MASS 05/19/2011 KADE KELLY, YAHIR K 388.70 EAR ACHE 05/19/2011 KADE KELLY, YAHIR K 611.72 BREAST LUMP OR MASS 06/09/2011 MARQUEZVANGIE Rucker APRN 610.0 SOLITARY CYST OF BREAST 06/09/2011 VANGIE MARQUEZ APRN 611.71 BREAST PAIN 06/09/2011 MARQUEZ HUMANITIES INSTRUCTORVANGIE Dillard 793.80 UNSPECIFIED (ABNORMAL) MAMMOGRAM 06/09/2011 610.0 SOLITARY [...] DOA K 610.1 DIFFUSE CYSTIC MASTOPATHY 07/07/2011 BRAUN DO YAHIR K V45.89 OTHER POSTSURGICAL STATUS 07/07/2011 BRAUN DO YAHIR K 217 BENIGN NEOPLASM OF BREAST 07/07/2011 BRAUN DO YAHIR K 610.1 DIFFUSE CYSTIC MASTOPATHY 07/07/2011 BRAUN DO YAHIR K V45.89 OTHER POSTSURGICAL STATUS 10/09/2011 VANGIE MARQUEZ APRN 795.04 ABNORMAL PAP - HGSIL 10/09/2011 VANGIE MARQUEZ APRN V72.31 SPORTS MARKETING COORDINATOR EXAM, ROUTINE 10/09/2011 795.04 ABNORMAL PAP - HGSIL 10/09/2011 V72.31 SPORTS MARKETING COORDINATOR EXAM, ROUTINE 10/09/2011 VANGIE MARQUEZ APRN 795.04 ABNORMAL PAP - HGSIL 10/09/2011 VANGIE MARQUEZ APRN V72.31 SPORTS MARKETING COORDINATOR EXAM, ROUTINE 10/09/2011 YAHIR BRAUN DO 795.04 ABNORMAL PAP - HGSIL 10/09/2011 YAHIR RBAUN DO V72.31 SPORTS MARKETING COORDINATOR EXAM, ROUTINE 10/09/2011 YAHIR BRAUN DO 795.04 ABNORMAL PAP - HGSIL 10/09/2011 YAHIR BRAUN DO V72.31 SPORTS MARKETING COORDINATOR EXAM, ROUTINE 10/27/2011 VANGIE MARQUEZ APRN 478.19 [...] [place] BRAUN DOA K 784.42 DYSPHONIA 10/27/2011 [place] BRAUN DOA K 786.2 COUGH 05/26/2012 VANGIE MARQUEZ APRN 477.9 RHINITIS 05/26/2012 477.9 RHINITIS 05/26/2012 VANGIE MARQUEZ APRN 477.9 RHINITIS 05/26/2012 YAHIR BRAUN DO 477.9 RHINITIS 05/26/2012 YAHIR BRAUN DO 477.9 RHINITIS 04/08/2013 780.79 OTHER MALAISE AND FATIGUE 04/08/2013 783.1 ABNORMAL WEIGHT GAIN 04/08/2013 JIMMY HUMANITIES INSTRUCTORVANGIE Dillard 780.79 OTHER MALAISE AND FATIGUE 04/08/2013 MARQUEZVANGIE COFFMAN APRN R 783.1 ABNORMAL WEIGHT GAIN 04/08/2013 YAHIR BRAUN DO K 780.79 OTHER MALAISE AND FATIGUE 04/08/2013 KADE KELLY, YAHIR K 783.1 ABNORMAL WEIGHT GAIN 04/08/2013 KADE KELLY, YAHIR K 780.79 OTHER MALAISE AND FATIGUE 04/08/2013 [place] BRAUN DOA K 783.1 ABNORMAL WEIGHT GAIN 04/15/2013 789.05 ABDOMINAL PAIN PERIUMBILIC 04/15/2013 JIMMY JACOBSONVANGIE Dillard R 789.05 ABDOMINAL PAIN PERIUMBILIC 04/15/2013 [place] BRAUN DOA K 789.05 ABDOMINAL PAIN PERIUMBILIC 04/15/2013 YAHIR BRAUN DO K 789.05 ABDOMINAL PAIN PERIUMBILIC 09/29/2016 Ot [...] OR MASS IN BREAST 09/29/2016 VANGIE MARQUEZ CFNP Ot 789.00 ABDOMINAL PAIN, UNSPECIFIED SITE 09/29/2016 VANGIE MARQUEZ CFMAJOR Ot 611.72 LUMP OR MASS IN BREAST 09/30/2016 ADALBERTO VELEZ Ot N63 UNSPECIFIED LUMP IN BREAST 10/12/2017 SIOMARA GARCIA SUPPLY CHAIN VICE PRESIDENT Ot Z87.898 PERSONAL HISTORY OF OTHER SPECIFIED COND 04/12/2019 MILAD RAMOS HUMANITIES INSTRUCTOR Ot R51 HEADACHE 04/12/2019 MILAD RAMOS HUMANITIES INSTRUCTOR Ot Z86.69 PERSONAL HISTORY OF DIS OF THE NERVOUS S 04/12/2019 MILAD RAMOS APRN Ot Z87.820 PERSONAL HISTORY OF TRAUMATIC BRAIN INJU 04/12/2019 MILAD RAMOS APRN Ot Z88.0 ALLERGY STATUS TO PENICILLIN 04/12/2019 MILAD RAMOS HUMANITIES INSTRUCTOR Ot Z88.1 ALLERGY STATUS TO OTHER ANTIBIOTIC AGENT 04/12/2019 MILAD RAMOS APRN Ot Z98.51 TUBAL LIGATION STATUS 04/14/2019 MILAD RAMOS APRN Ot R51 HEADACHE 04/14/2019 MILAD RAMOS APRN Ot Z86.69 PERSONAL HISTORY OF DIS OF THE NERVOUS S 04/14/2019 MILAD RAMOS APRN Ot Z87.820 PERSONAL HISTORY OF TRAUMATIC BRAIN INJU 04/14/2019 MILAD RAMOS APRN Ot Z88.0 ALLERGY STATUS TO PENICILLIN 04/14/2019 MILAD RAMOS APRN Ot Z88.1 ALLERGY STATUS TO OTHER ANTIBIOTIC AGENT 04/14/2019 MILAD RAMOS APRN Ot Z98.51 TUBAL LIGATION STATUS 04/16/2019 MILAD RAMOS APRN Ot G40.909 EPILEPSY, UNSP, NOT INTRACTABLE, WITHOUT 04/16/2019 MILAD RAMOS APRN Ot G97.1 OTHER REACTION TO SPINAL AND LUMBAR PUNC 04/16/2019 MILAD RAMOS APRN Ot R51 HEADACHE 04/16/2019 MILAD RAMOS APRN Ot Z87.891 PERSONAL HISTORY OF NICOTINE DEPENDENCE 04/16/2019 MILAD RAMOS APRN Ot Z88.0 ALLERGY STATUS TO PENICILLIN 04/16/2019 MILAD RAMOS APRN Ot Z88.1 ALLERGY STATUS TO OTHER ANTIBIOTIC AGENT 04/16/2019 MILAD RAMOS APRN Ot Z98.51 TUBAL LIGATION STATUS 04/16/2019 MILAD RAMOS APRN Ot Z98.890 OTHER SPECIFIED POSTPROCEDURAL STATES 04/18/2019 MILAD RAMOS APRN Ot G40.909 EPILEPSY, UNSP, NOT INTRACTABLE, WITHOUT 04/18/2019 MILAD RAMOS HUMANITIES INSTRUCTOR Ot G97.1 OTHER REACTION TO SPINAL AND LUMBAR PUNC 04/18/2019 MILAD RAMOS APRN Ot R51 HEADACHE 04/18/2019 MILAD RAMOS APRN Ot Z87.891 PERSONAL HISTORY OF NICOTINE DEPENDENCE 04/18/2019 MILAD RAMOS APRN Ot Z88.0 ALLERGY STATUS TO PENICILLIN 04/18/2019 MILAD RAMOS APRN Ot Z88.1 ALLERGY STATUS TO OTHER ANTIBIOTIC AGENT 04/18/2019 MILAD RAMOS HUMANITIES INSTRUCTOR Ot Z98.51 TUBAL LIGATION STATUS 04/18/2019 MILAD RAMOS APRN Ot Z98.890 OTHER SPECIFIED POSTPROCEDURAL STATES 04/22/2019 MILAD RAMOS APRN Ot G40.909 EPILEPSY, UNSP, NOT INTRACTABLE, WITHOUT 04/22/2019 MILAD RAMOS HUMANITIES INSTRUCTOR Ot G97.1 OTHER REACTION TO SPINAL AND LUMBAR PUNC 04/22/2019 MILAD RAMOS APRN Ot R51 HEADACHE 04/22/2019 MILAD RAMOS APRN Ot Z87.891 PERSONAL HISTORY OF NICOTINE DEPENDENCE 04/22/2019 MILAD RAMOS APRN Ot Z88.0 ALLERGY STATUS TO PENICILLIN 04/22/2019 MILAD RAMOS APRN Ot Z88.1 ALLERGY STATUS TO OTHER ANTIBIOTIC AGENT 04/22/2019 MILAD RAMOS APRN Ot Z98.51 TUBAL LIGATION STATUS 04/22/2019 MILAD RAMOS APRN Ot Z98.890 OTHER SPECIFIED POSTPROCEDURAL STATES 05/19/2019 JUNIOR LAM, CARLA Edmond Ot Z01.818 ENCOUNTER FOR OTHER PREPROCEDURAL EXAMIN Procedures Code Description [place] [address] US BREAST(S) ULTRASOUND, BOTH 10/08/2012 34444 US GUIDE FOR BIOPSY 10/08/2012 79885 MAMMOGRAM DX, KAMILLA 10/08/2012 49106 H PYLORI (IN-HOUSE) 04/08/2013 43677 ROUTINE VENIPUNCTURE 04/11/2013 85899 CBC 04/11/2013 70975 IRON SERUM 04/11/2013 13764 IRON BNDNG CAP 04/11/2013 02953 TSH 04/11/2013 43126 FERRITIN 04/11/2013 84049 CARBAMAZAPINE (TEGRETOL) TOTAL 04/11/2013 90882 CARBAMAZAPINE (TEGRETOL) TOTAL 04/15/2013 IRGROUP IRON GROUP (Iron,TIBC, Ferritin) 04/15/2013 29378 KUB 04/18/2013 86934 ROUTINE VENIPUNCTURE 02/06/2015 38943 CBC 02/06/2015 [id number] GFR CALC (RESULT ONLY) 02/06/2015 49660 CMP 02/06/2015 81542 LIPID PANEL 02/06/2015 14499 CARBAMAZAPINE (TEGRETOL) TOTAL 02/06/2015 34900 TSH 02/06/2015 Results Test Result Range Complete [...] 0-0 Manual cerebrospinal fluid lymphocytes/100 leukocytes TNP NR Manual cerebrospinal fluid mononuclear cells/100 leukocytes TNP NR Manual cerebrospinal fluid polymorphonuclear cells/100 leukocytes TNP NR Cerebrospinal fluid cell count on specimen from last tube collected 4 NRG Cerebrospinal fluid glucose measurement (mass/volume) - 04/12/19 22:36 Cerebrospinal fluid glucose measurement (mass/volume) 54 mg/dL 50-80 Cerebrospinal fluid protein measurement (mass/volume) - 04/12/19 22:36 Cerebrospinal fluid protein measurement (mass/volume) 29 mg/dL 15-40 Gram stain microscopy - 04/12/19 22:36 Gram stain microscopy GRAM STAIN PERFORMED AT [facility]. NRG Bacterial cerebrospinal fluid culture - 04/12/19 22:36 Bacterial cerebrospinal fluid culture NR Complete blood count (CBC) with automated white blood cell (WBC) differential - 04/16/19 15:48 Blood leukocytes automated count (number/volume) 5.5 10*3/uL 4.3-11.0 Blood erythrocytes automated count (number/volume) 4.61 10*6/uL 4.35-5.85 Venous blood hemoglobin measurement (mass/volume) 13.7 g/dL 11.5-16.0 Blood hematocrit (volume fraction) 40 % 35-52 Automated erythrocyte mean corpuscular volume 86 [foz_us] 80-99 Automated erythrocyte mean corpuscular hemoglobin (mass per erythrocyte) 30 pg 25-34 Automated erythrocyte mean corpuscular hemoglobin concentration measurement (mass/volume) 35 g/dL 32-36 Automated erythrocyte distribution width ratio 12.0 % 10.0- 14.5 Automated blood platelet count (count/volume) 272 10*3/uL 130-400 Automated blood platelet mean volume measurement 8.9 [foz_us] 7.4-10.4 Automated blood neutrophils/100 leukocytes 70 % 42-75 Automated blood lymphocytes/100 leukocytes 20 % 12-44 Blood monocytes/100 leukocytes 9 % 0-12 Automated blood eosinophils/100 leukocytes 0 % 0-10 Automated blood basophils/100 leukocytes 0 % 0-10 Blood neutrophils automated count (number/volume) 3.9 10*3 1.8-7.8 Blood lymphocytes automated count (number/volume) 1.1 10*3 1.0-4.0 Blood monocytes automated count (number/volume) 0.5 10*3 0.0- 1.0 Automated eosinophil count 0.0 10*3/uL 0.0-0.3 Automated blood basophil count (count/volume) 0.0 10*3/uL 0.0-0.1 Comprehensive metabolic panel - 04/16/19 15:48 Serum or plasma sodium measurement (moles/volume) 140 mmol/L 135-145 Serum or plasma potassium measurement (moles/volume) 3.8 mmol/L 3.6-5.0 Serum or plasma chloride measurement (moles/volume) 104 mmol/L 98-107 Carbon dioxide 19 mmol/L 21-32 Serum or plasma anion gap determination (moles/volume) 17 mmol/L 5-14 Serum or plasma urea nitrogen measurement (mass/volume) 14 mg/dL 7-18 Serum or plasma creatinine measurement (mass/volume) 0.75 mg/dL 0.60-1.30 Serum or plasma urea nitrogen/creatinine mass ratio 19 NRG Serum or plasma creatinine measurement with calculation of estimated glomerular filtration rate > NRG Serum or plasma glucose measurement (mass/volume) 87 mg/dL 70-105 Serum or plasma calcium measurement (mass/volume) 10.4 mg/dL 8.5-10.1 Serum or plasma total bilirubin measurement (mass/volume) 0.4 mg/dL 0.1-1.0 Serum or plasma alkaline phosphatase measurement (enzymatic activity/volume) 64 U/L 40-136 Serum or plasma aspartate aminotransferase measurement (enzymatic activity/volume) 15 U/L 5-34 Serum or plasma alanine aminotransferase measurement (enzymatic activity/volume) 15 U/L 0-55 Serum or plasma protein measurement (mass/volume) 7.5 g/dL 6.4-8.2 Serum or plasma albumin measurement (mass/volume) 4.9 g/dL 3.2-4.5 Complete urinalysis with reflex to culture - 04/16/19 15:55 Urine color determination YELLOW NRG Urine clarity determination CLEAR NRG Urine pH measurement by test strip 5 5-9 Specific gravity of urine by test strip 1.030 1.016-1.022 Urine protein assay by test strip, semi-quantitative 2+ NEGATIVE Urine glucose detection by automated test strip NEGATIVE NEGATIVE Erythrocytes detection in urine sediment by light microscopy NEGATIVE NEGATIVE Urine ketones detection by automated test strip 4+ NEGATIVE Urine nitrite detection by test strip NEGATIVE NEGATIVE Urine total bilirubin detection by test strip NEGATIVE NEGATIVE Urine urobilinogen measurement by automated test strip (mass/volume) NORMAL NORMAL Urine leukocyte esterase detection by dipstick NEGATIVE NEGATIVE Automated urine sediment erythrocyte count by microscopy (number/high power field) NONE NRG Automated urine sediment leukocyte count by microscopy (number/high power field) [HPF] NRG Bacteria detection in urine sediment by light microscopy TRACE NRG Squamous epithelial cells detection in urine sediment by light microscopy 2-5 NRG Crystals detection in urine sediment by light microscopy NONE NRG Casts detection in urine sediment by light microscopy NONE NRG Mucus detection in urine sediment by light microscopy NEGATIVE NRG Complete urinalysis with reflex to culture NO NRG Encounters ACCT No. Visit Date/Time Discharge Status Pt. Type Provider Facility Loc./Unit Complaint [id number] 02/06/2015 08:08:00 02/06/2015 23:59:59 CLS Outpatient YAHIR BRAUN DO [id number] 07/04/2014 10:36:00 07/04/2014 23:59:59 CLS Outpatient YAHIR BRAUN DO [id number] 11/30/2013 08:48:00 11/30/2013 23:59:59 CLS Outpatient VANGIE MARQUEZ APRN [id number] 10/08/2012 10:04:00 10/08/2012 23:59:59 CLS Outpatient VANGIE MARQUEZ APRN [id number] 04/15/2013 10:36:00 Document Registration [id number] 05/19/2019 05:40:00 05/19/2019 15:39:00 DIS Outpatient CARLA PACHECO MD [facility] PREOP COLONOSCOPY [id number] 04/16/2019 15:35:00 04/16/2019 18:02:00 DIS Emergency MILAD RAMOS APRN [facility] ER NAUSEA, VOMITING, HEADACHES, WEAK [id number] 04/12/2019 20:07:00 04/12/2019 23:27:00 DIS Emergency MILAD RAMOS APRN [facility] ER HEADACHE,L EAR PAIN,FACE AND THROAT NUMBNESS [id number] 10/09/2017 08:41:00 10/09/2017 23:59:59 CLS Outpatient SIOMARA GARCIA [facility] RAD Z87.898 ABNORMAL MAMMOGRAM [id number] 09/29/2016 13:19:00 09/29/2016 23:59:59 CLS Outpatient ADALBERTO VELEZ [facility] RAD SCREENING, FIBROUS BREAST TISSUE [id number] 05/23/2013 11:54:00 05/23/2013 23:59:59 CLS Outpatient VANGIE MARQUEZ CFMAJOR [facility] RAD FOLLOW-UP [id number] 04/15/2013 12:21:00 04/15/2013 23:59:59 CLS Outpatient VANGIE MARQUEZ [facility] RAD ABD PAIN [id number] 05/27/2019 08:00:00 PEN Preadmit CARLA PACHECO MD [facility] ENDO SCREENING [id number] 11/18/2012 12:13:00 Document Registration [id number] 10/28/2012 12:38:00 Document Registration [id number] 03/29/2012 13:50:00 Document Registration [id number] 06/26/2011 05:40:00 Document Registration [id number] 06/19/2011 13:42:00 Document Registration [id number] 05/27/2011 13:14:00 Document Registration
[2019-05-27] MEDS ORDERED: LACTATED RINGERS 1,000 ML IV STA (07:16)
[2019-05-27 07:28] VITALS: BP 140/70
[2019-05-27] MEDS ORDERED: PROPOFOL INJECTION 50 ML IV ONE ×2 (07:28→09:02)
[2019-05-27] MEDS ORDERED: LIDOCAINE JELLY 2% 6 ML SYRINGE MM PRN (07:30)
[2019-05-27] MEDS ORDERED: MIDAZOLAM 2 MG/2 ML (VERSED) VIAL ONE (07:30)
[2019-05-27] MEDS ORDERED: FAMOTIDINE 20MG/2ML IV (PEPCID) ONE (07:34)
--- NOTE | 2019-05-27 08:00 | Pre-Op Note & Conscious Sedat ---
Pre-Operative Progress Note H&P Reviewed The H&P was reviewed, patient examined and no changes noted. Date H&P Reviewed: May 27, 2019 Time H&P Reviewed: 07:50 Conscious Sedation Pre-Proced ASA Score 2 For ASA 3 and 4: Consider anesthesia and medical clearance. Also, for patients with a history of failed moderate sedation consider anesthesia. Airway Lungs Heart ASA score ASA 1: a normal healthy patient ASA 2: a patient with a mild systemic disease (mid diabetes, controlled hypertension, obesity ASA 3: a patient with a severe systemic disease that limits activity (angina, COPD, prior Myocardial infarction) ASA 4: a patient with an incapacitating disease that is a constant threat to life (CHF, renal failure) ASA 5: a moribund patient not expected to survive 24 hrs. (ruptured aneurysm) ASA 6: a declared brain- patient whose organs are being harvested. For emergent operations, add the letter E after the classification Mallampati Classification Grade 2 Sedation Plan Analgesia, Amnesia, Plan communicated to team members, Discussed options with patient/fam, Discussed risks with patient/fam The patient is an appropriate candidate to undergo the planned procedure, sedation, and anesthesia. The patient immediately re-assessed prior to indication. CARLA PACHECO MD May 27, 2019 08:00
[2019-05-27] MEDS ORDERED: LIDOCAINE JELLY 2% 6 ML SYRINGE ONE (08:47)
[2019-05-27 09:35] VITALS: BP 114/59
[2019-05-27 09:40] VITALS: BP 136/64
[2019-05-27 09:45] VITALS: BP 136/64
[2019-05-27 10:15] VITALS: BP 143/74
--- NOTE | 2019-05-27 11:02 | Anesthesia-General Post-Op ---
MAC Patient Condition Mental Status/LOC: Same as Preop Cardiovascular: Satisfactory Nausea/Vomiting: Absent Respiratory: Satisfactory Pain: Controlled Complications: Absent Post Op Complications Complications None Follow Up Care/Instructions Patient Instructions None needed. Anesthesiology Discharge Order Discharge Order Patient is doing well, no complaints, stable vital signs, no apparent adverse anesthesia problems. No complications reported per nursing. MATHEW BARBOUR CRNA May 27, 2019 11:02
[2019-05-27 11:20] VITALS: BP 143/74
--- NOTE | 2019-05-27 17:42 | OPERATIVE REPORT ---
DATE OF SERVICE: COLONOSCOPY SUMMARY INDICATION FOR THE PROCEDURE: Screening. The patient was placed in the left lateral decubitus position. Prior to undergoing digital rectal evaluation, digital rectal evaluation was performed. Anal sphincter tone was normal and the perianal reflexes intact. No abnormalities, no additional inspection of anal canal or distal rectal vault. The colonoscope was inserted into the rectum and under direct visualization advanced to cecum. The cecum was identified by identification of ileocecal valve and cecal strap. Photographic documentation was obtained. Careful inspection was made as the colonoscope was withdrawn. Quality of prep was fair. FINDINGS: There was no evidence for internal or external hemorrhoids. There was severe melanosis coli noted throughout the colon. The rectum was otherwise unremarkable as was the sigmoid colon and descending colon. Two sessile polyps were noted, one in the distal transverse and the other in the proximal transverse colon. Both were biopsied and ablated. The distal transverse colonic polyp did ooze and continued to do so during visualization. For this reason, an endoclip was applied with cessation of bleeding, which probably amounted no more than 5 mL. Proximal sessile polyp had minimal blood loss. The hepatic flexure, ascending colon and cecum except for melanosis was unremarkable. ASSESSMENT: Two diminutive polyps were removed via hot forceps today, one from the distal, the other from the proximal transverse colon. We will await histopathology report before making recommendation that will likely be in the 1 to 3 year time frame. An endoclip was applied to the distal transverse colonic polyp site as there was more than the average amount of bleeding noted. Discussed with the patient and her sister who was present the need to avoid nonsteroidal medications, aspirin and hold her fish oil for the next week as well. I thank you for the referral of this pleasant lady. Job ID: [id number] DocumentID: [id number] Dictated Date: 05/27/2019 10:39:09 Cell Phone Repair Technician Date: 05/27/2019 17:40:46 Dictated By: CARLA PACHECO MD [facility]
== END 2019-05-27 11:20 | disposition home or self-care (01) ==
LOC: ENDO 06:54
PROVIDERS: ATTEND Internal Medicine
DX: Z12.11 Encounter for screening for malignant neoplasm of colon (principal); D12.3 Benign neoplasm of transverse colon; K63.89 Other specified diseases of intestine; K21.9 Gastro-esophageal reflux disease without esophagitis; K58.9 Irritable bowel syndrome, unspecified; E78.5 Hyperlipidemia, unspecified; G40.909 Epilepsy, unspecified, not intractable, without status epilepticus; Z87.820 Personal history of traumatic brain injury; Z79.899 Other long term (current) drug therapy; Z90.49 Acquired absence of other specified parts of digestive tract; Z98.51 Tubal ligation status; Z87.891 Personal history of nicotine dependence; G43.909 Migraine, unspecified, not intractable, without status migrainosus
CPT/HCPCS: 88305

== ENCOUNTER → 2020-03-08 | Outpatient (CLI) | payer BC ==
--- NOTE | 2020-03-08 13:41 | Diagnostic Imaging Report ---
INDICATION: Urinary retention TECHNIQUE: Multiple real time crook scale sonographic images were obtained of the bladder. CORRELATION STUDY: None FINDINGS: There is presence of bilateral ureteral jets. Urinary bladder appearing unremarkable. Prevoid Volume: 218 mL. Postvoid volume: 0 mL. IMPRESSION: 1. Unremarkable appearance of the urinary bladder. There is essentially complete emptying of the bladder at post void assessment. Dictated by: Dictated on workstation # [id number]
== END ==
LOC: RAD 12:36
PROVIDERS: ATTEND Nurse Practitioner Family
DX: R33.9 Retention of urine, unspecified (principal)
CPT/HCPCS: 76857

== ENCOUNTER → 2020-07-09 | Outpatient (CLI) | payer BC ==
[~2020-07-09] VITALS: Ht 162.6 cm; Wt 63.6 kg
[~2020-07-09] MED LIST changes: +DIVA-21 PO; +MELO7.5T46 PO; +POLY119P2 PO; -POLY119P4 PO
== END | disposition home or self-care (01) ==
LOC: PREOP 07-06 05:48
PROVIDERS: ATTEND Internal Medicine
DX: Z01.818 Encounter for other preprocedural examination (principal)

== ENCOUNTER 2020-07-13 06:43 | Day surgery (SDC) | payer BC ==
--- NOTE | 2020-07-04 09:32 | HISTORY AND PHYSICAL ---
DATE OF SERVICE: SURVEILLANCE COLONOSCOPY HISTORY OF PRESENT ILLNESS: The patient is a 55-year-old white female who underwent first colonoscopy a year ago, at which time she had several tubular adenomas removed. She did have significant melanosis coli as well. She reports no problems with her colonoscopy, it was done under Diprivan based anesthesia. She denies any change in medical history over the past year. 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 PAST SURGICAL HISTORY: Significant for cholecystectomy done laparoscopically. She has had tubal ligation and a breast biopsy for benign disease. PHYSICAL EXAMINATION: GENERAL: Reveals a white female, who appears to be in no acute distress. VITAL SIGNS: Blood pressure 130/70, weight 140 pounds. HEENT: Unremarkable. CHEST: Clear. CARDIOVASCULAR: Revealed a regular rate and rhythm without murmur, S3 or S4. ABDOMEN: Soft, supple. She has some mild epigastric discomfort to palpation without rebound or guarding. No mass or organomegaly were noted. EXTREMITIES: Reveal no cyanosis, clubbing or edema. ASSESSMENT AND PLAN: The patient was set up for surveillance colonoscopy due to past history of colon polyps. One year ago, she had a tubular adenoma removed from the proximal transverse colon and also distal transverse colon. Prep instructions with the Suprep kit were given and questions were answered. I thank you for the referral of this pleasant lady. Job ID: [id number] DocumentID: [id number] Dictated Date: 06/28/2020 16:44:47 Program Host Date: 06/28/2020 17:33:11 Dictated By: CARLA PACHECO MD
[~2020-07-13] VITALS: Ht 162.6 cm; Wt 63.6 kg
[2020-07-13] MEDS ORDERED: LACTATED RINGERS 1,000 ML IV ONE (07:08)
[2020-07-13] MEDS ORDERED: MIDAZOLAM 2 MG/2 ML (VERSED) VIAL ONE (07:12)
[2020-07-13] MEDS ORDERED: proPOfol 200 MG/20 ML (DIPRIVAN) VIAL IV ONE ×2 (07:12→08:22)
[2020-07-13] MEDS ORDERED: LACTATED RINGERS 1,000 ML IV STA (07:14)
[2020-07-13] MEDS ORDERED: LIDOCAINE JELLY 2% 6 ML SYRINGE MM PRN (07:15)
[2020-07-13 07:35] VITALS: BP 143/81
[2020-07-13] MEDS ORDERED: LIDOCAINE JELLY 2% 6 ML SYRINGE ONE (07:39)
--- NOTE | 2020-07-13 08:01 | Pre-Op Note & Conscious Sedat ---
Pre-Operative Progress Note H&P Reviewed The H&P was reviewed, patient examined and no changes noted. Date H&P Reviewed: Jul 13, 2020 Time H&P Reviewed: 07:45 Conscious Sedation Pre-Proced ASA Score 2 For ASA 3 and 4: Consider anesthesia and medical clearance. Also, for patients with a history of failed moderate sedation consider anesthesia. Airway Lungs Heart ASA score ASA 1: a normal healthy patient ASA 2: a patient with a mild systemic disease (mid diabetes, controlled hypertension, obesity ASA 3: a patient with a severe systemic disease that limits activity (angina, COPD, prior Myocardial infarction) ASA 4: a patient with an incapacitating disease that is a constant threat to life (CHF, renal failure) ASA 5: a moribund patient not expected to survive 24 hrs. (ruptured aneurysm) ASA 6: a declared brain- patient whose organs are being harvested. For emergent operations, add the letter E after the classification Mallampati Classification Grade 1 Sedation Plan Analgesia, Amnesia, Plan communicated to team members, Discussed options with patient/fam, Discussed risks with patient/fam The patient is an appropriate candidate to undergo the planned procedure, sedation, and anesthesia. The patient immediately re-assessed prior to indication. CARLA PACHECO MD Jul 13, 2020 08:01
[2020-07-13 08:35] VITALS: BP 148/69
[2020-07-13 08:40] VITALS: BP 149/61
[2020-07-13 08:45] VITALS: BP_SYST 144; BP_SYST 155; BP_DIAS 64; BP_DIAS 71
[2020-07-13 09:08] VITALS: BP 135/61
[2020-07-13 09:09] VITALS: BP 135/61
--- NOTE | 2020-07-13 09:10 | Anesthesia-General Post-Op ---
MAC Patient Condition Mental Status/LOC: Same as Preop Cardiovascular: Satisfactory Nausea/Vomiting: Absent Respiratory: Satisfactory Pain: Controlled Complications: Absent Post Op Complications Complications None Follow Up Care/Instructions Patient Instructions None needed. Anesthesiology Discharge Order Discharge Order Patient is doing well, no complaints, stable vital signs, no apparent adverse anesthesia problems. No complications reported per nursing. RHEA BRUNO CRNA Jul 13, 2020 09:10
--- NOTE | 2020-07-13 13:18 | OPERATIVE REPORT ---
DATE OF SERVICE: COLONOSCOPY SUMMARY INDICATION FOR THE PROCEDURE: Surveillance colonoscopy due to history of polyps. DESCRIPTION OF PROCEDURE: The patient was placed in the left lateral decubitus position. Digital rectal evaluation was performed. Anal sphincter tone was normal and the perianal reflex was intact. No abnormalities were noted on digital inspection of anal canal or distal rectal vault. The colonoscope was then inserted into the rectum and under direct visualization advanced to the cecum. The cecum was identified by identification of the ileocecal valve and cecal strap. Photographic documentation was obtained. Quality of the prep was fair except for the cecum and proximal ascending colon for which there was a thin layer of semi-solid stool. FINDINGS: There was no evidence for internal or external hemorrhoids in the rectum. Again, noted was diffuse melanosis coli involving the entire colon. Otherwise, the rectum, sigmoid colon and descending colon were unremarkable. A diminutive sessile 2 x 3 mm polyp was noted at the splenic flexure. A similar polyp was noted in the distal transverse colon. Both were biopsied and ablated with no significant blood loss. The remainder of the transverse colon, hepatic flexure, ascending colon and cecum were unremarkable. ASSESSMENT: Two diminutive polyps were removed, one from the splenic flexure and one from the distal transverse colon. As long as there are no surprises on histopathology report, would advocate increased surveillance interval to 3 years. The patient will again require Diprivan based anesthesia and will likely need a 48-hour prep plan due to underlying chronic constipation. I thank you for the referral of this pleasant lady. Job ID: [id number] DocumentID: [id number] Dictated Date: 07/13/2020 08:42:48 Vascular Manager Date: 07/13/2020 13:17:57 Dictated By: CARLA PACHECO MD [facility]
== END 2020-07-13 09:13 | disposition home or self-care (01) ==
LOC: ENDO 06:43
PROVIDERS: ATTEND Internal Medicine
DX: Z12.11 Encounter for screening for malignant neoplasm of colon (principal); D12.3 Benign neoplasm of transverse colon; K63.89 Other specified diseases of intestine; F41.9 Anxiety disorder, unspecified; F32.9 Major depressive disorder, single episode, unspecified; G43.909 Migraine, unspecified, not intractable, without status migrainosus; E78.5 Hyperlipidemia, unspecified; Z79.899 Other long term (current) drug therapy; Z88.0 Allergy status to penicillin; Z88.1 Allergy status to other antibiotic agents; Z86.010 Personal history of colon polyps
CPT/HCPCS: 88305

== ENCOUNTER 2021-05-16 06:35 | Outpatient (CLI) | payer BC ==
[~2021-05-16] VITALS: Ht 162.6 cm; Wt 69.4 kg
[2021-05-16] MEDS ORDERED: CARB200T5 PO (09:27)
[2021-05-16] MEDS ORDERED: CYAN-23 PO (09:27)
[2021-05-16] MEDS ORDERED: MELO7.5T46 PO (09:27)
[2021-05-16] MEDS ORDERED: CARB200T PO (09:27)
[2021-05-16] MEDS ORDERED: OMEG-160 PO (09:27)
[2021-05-16] MEDS ORDERED: DIVA500T15 PO (09:27)
== END 2021-05-16 09:42 | disposition home or self-care (01) ==
LOC: PREOP 06:35
PROVIDERS: ATTEND Surgery
DX: Z01.818 Encounter for other preprocedural examination (principal)

== ENCOUNTER 2021-05-23 09:25 | Day surgery (SDC) | payer BC ==
[~2021-05-23] VITALS: Ht 162.6 cm; Wt 69.4 kg
[2021-05-23] VITALS (11 sets, daily range): BP systolic 118–153; BP diastolic 54–78
[~2021-05-23 09:25] MED LIST changes: +CARB200T PO; +CARB200T5 PO; +CYAN-23 PO; +DIVA500T15 PO; +OMEG-160 PO
[2021-05-23] MEDS ORDERED: LIDOCAINE/EPI 1%-1:100,000 (XYLOCAINE) 20ML ONE (09:36)
[2021-05-23] MEDS ORDERED: proPOfol 200 MG/20 ML (DIPRIVAN) VIAL IV ONE (09:59)
[2021-05-23] MEDS ORDERED: LIDOCAINE PF 2% 5 ML (XYLOCAINE) VIAL ONE (09:59)
[2021-05-23] MEDS ORDERED: ONDANSETRON 4 MG/2 ML (SDV) Z0FRAN ONE (09:59)
[2021-05-23] MEDS ORDERED: MIDAZOLAM 2 MG/2 ML (VERSED) VIAL ONE (10:00)
[2021-05-23] MEDS ORDERED: fentaNYL INJ 100 MCG/2 ML AMP ONE (10:00)
[2021-05-23] MEDS ORDERED: LACTATED RINGERS 1,000 ML IV PRN (10:15)
[2021-05-23] MEDS ORDERED: ceFAZolin INJECTION 1,000 MG ONE (10:55)
[2021-05-23] MEDS ORDERED: SEVOFLURANE (ULTANE) 15 ML INHAL SOLN ONE (11:20)
--- NOTE | 2021-05-23 11:43 | Discharge Inst-Simple/Standard ---
Discharge Inst-Standard Patient Instructions/Follow Up Plan of Care/Instructions/FU: 12-14 DAYS for suture removal. Deidra 2 weeks. Activity as Tolerated: No Discharge Diet: Regular Diet Other Inst to Patient Follow up Appt: Make appointment for 2 week. Instructions: No strenuous activity. May shower in 24 hours, no tub bath or soaking. Use incentive spirometer at home as directed. No Smoking Skin/Wound Care: Keep area clean and dry. Symptoms to Report: Appetite Changes, Extremity Discoloration, Numbness/Tingling, Swelling Increased, Bleeding Excessive, Eyesight Changes, Pain Increased, Urine Color Change, Constipation(Persistent), Fever over 101 degree F, Pain/Pressure in chest, Urinating Difficulty, Cough Up/Vomit Blood, Heart Beat Irreg/Pounding, Pain/Pressure in jaw, Vaginal Bleeding Increase, Cramps in feet or legs, Lightheadedness, Pain/Pressure in shoulder, Diarrhea(Persistent), Memory Changes Suddenly, Questions/Concerns, Weight gain consecutive days, Dizziness/Fainting, Nausea/Vomiting, Shortness of Breath, Weight gain over 2 pounds If questions or concerns contact your physician Or seek help at emergency department. JAVIER RASMUSSEN DO May 23, 2021 11:43
[2021-05-23] MEDS ORDERED: ONDANSETRON 4 MG/2 ML (SDV) Z0FRAN IVP PRN (11:45)
[2021-05-23] MEDS ORDERED: morphine INJ 10 MG/ML 1ML (SYR OR VIAL) IVP ONE (11:45)
--- NOTE | 2021-05-23 13:45 | Anesthesia-General Post-Op ---
General Patient Condition Mental Status/LOC: Same as Preop Cardiovascular: Satisfactory Nausea/Vomiting: Absent Respiratory: Satisfactory Pain: Controlled Complications: Absent Post Op Complications Complications None Follow Up Care/Instructions Patient Instructions None needed. Anesthesia/Patient Condition Patient Condition Patient was seen after the procedure and she was doing well, no complaints, stable vital signs, no apparent adverse anesthesia problems. J[place] LISA DO May 23, 2021 13:45
--- NOTE | 2021-05-23 16:52 | OPERATIVE REPORT ---
DATE OF SERVICE: 05/23/2021 PREOPERATIVE DIAGNOSIS: Lower extremity skin lesion. POSTOPERATIVE DIAGNOSIS: Lower extremity skin lesion. PROCEDURE: Excision of left lower extremity skin lesion, 5.3 x 2.1 cm. SURGEON: Javier Gay DO ANESTHESIA: General. ESTIMATED BLOOD LOSS: Minimal. COMPLICATIONS: None. INDICATIONS: The patient is a 56-year-old female with a nodular basal cell carcinoma. She understands risks and benefits of procedure, consent was signed in the chart. DESCRIPTION OF PROCEDURE: The patient was taken to the operating suite. She was prepped and draped in sterile fashion. Timeout was performed. Local anesthetic was infiltrated around the lesion. A 15 blade scalpel was used to make a skin incision measuring 5.3 x 2.1 cm and skin and subcutaneous tissue were removed. Hemostasis was achieved. Skin was then closed using 2-0 Prolene in a vertical mattress fashion. The area was then washed and dried and sterile bandage was applied. The patient tolerated procedure well without any complications, taken to recovery room in stable condition. Job ID: [id number] DocumentID: [id number] Dictated Date: 05/23/2021 12:01:03 Evp Managing Director Date: 05/23/2021 16:51:32 Dictated By: JAVIER GAY DO
== END 2021-05-23 13:25 | disposition home or self-care (01) ==
LOC: SDC 09:25
PROVIDERS: ATTEND Surgery
DX: C44.719 Basal cell carcinoma of skin of left lower limb, including hip (principal); I10 Essential (primary) hypertension; F32.9 Major depressive disorder, single episode, unspecified; F41.9 Anxiety disorder, unspecified; Z79.2 Long term (current) use of antibiotics; Z79.899 Other long term (current) drug therapy; Z87.891 Personal history of nicotine dependence
CPT/HCPCS: 84703; 87081

== ENCOUNTER → 2023-01-21 | Outpatient (CLI) | payer BC ==
--- NOTE | 2023-01-21 13:01 | Diagnostic Imaging Report ---
INDICATION: COUGH COMPARISON: None FINDINGS: Frontal and lateral views of the chest demonstrate normal heart size and pulmonary vascularity. The lungs are clear. There are no signs of infiltrate, pleural effusions or pneumothoraces. The visualized osseous structures show no acute abnormalities. IMPRESSION: 1. No acute process. No signs of infiltrates, effusions or pneumothoraces. Dictated by: Dictated on workstation # [id number]
== END ==
LOC: RAD 10:17
PROVIDERS: ATTEND Nurse Practitioner Family
DX: R05.9 Cough, unspecified (principal)
CPT/HCPCS: 71046